=== PATIENT | female | born 1945 | race Caucasian/White ===

== ENCOUNTER 2016-05-03 18:27 | Inpatient (IN) | payer MEDICARE, OTHER ==
[~2016-05-03] VITALS: Ht 152.4 cm; Wt 73.3 kg
[2016-05-03] MEDS ORDERED: NALOXONE INJ 2 MG/2 ML SYRINGE (J2310) As Ordered ONE (20:08)
[2016-05-03 20:25] LABS: BASO % 0.4 % (0.0-1.0); EOS # 0.3 K/mm3 (0.0-0.50); EOS % 2.8 % (0.0-3.0); LARGE UNSTAINED CELL # 0.2 K/mm3 (0.0-0.4); LARGE UNSTAINED CELL % 1.4 % (0.0-4.0); LYMPH # 0.9 K/mm3 (1.5-4.5); LYMPH % 7.6 % (24.0-44.0); MEAN CORPUSCULAR HEMOGLOBIN 30.1 pg (27.0-33.0); MEAN CORPUSCULAR HGB CONC 32.4 g/dl (32.0-36.5); MONO # 0.5 K/mm3 (0.0-0.8); MONO % 3.9 % (0.0-5.0); NEUTROPHILS # 9.9 K/mm3 (1.8-7.7); NEUTROPHILS % 83.9 % (36.0-66.0); PLATELET COUNT, AUTOMATED 192 k/mm3 (150-450); WHITE BLOOD COUNT 11.8 K/mm3 (4.0-10.0)
[2016-05-03 20:26] LABS: ABG BASE EXCESS 3.3 (-2.0-2.0); ABG DEVICE NASAL CANN; ABG HCO3 28.5 MEQ/L (22.0-26.0); ABG PARTIAL PRESSURE CO2 45.7 mmHg (35.0-45.0); ABG PARTIAL PRESSURE O2 52.7 mmHg (75.0-100.0); ABG STANDARD HCO3 27.2 MEQ/L (22.0-26.0); ABG TOTAL CO2 29.9 MEQ/L (23.0-31.0); ABG pH (ARTERIAL) 7.413 UNITS (7.350-7.450)
[2016-05-03 20:50] LABS: ALBUMIN 3.4 GM/DL (3.2-5.2); ALBUMIN/GLOBULIN RATIO 0.92 (1.00-1.93); ALKALINE PHOSPHATASE 95 U/L (45-117); ALT/SGPT 25 U/L (12-78); ANION GAP 9 MEQ/L (8-16); AST/SGOT 30 U/L (15-37); BILIRUBIN,DIRECT 0.1 MG/DL (0.0-0.2); BILIRUBIN,TOTAL 0.3 MG/DL (0.2-1.0); BLOOD UREA NITROGEN 18 MG/DL (7-18); CALCIUM LEVEL 8.5 MG/DL (8.8-10.2); CARBON DIOXIDE LEVEL 30 MEQ/L (21-32); CHLORIDE LEVEL 105 MEQ/L (98-107); CREATININE FOR GFR 0.96 MG/DL (0.55-1.02); GLOMERULAR FILTRATION RATE > 60.0 (>39); GLUCOSE, FASTING 95 MG/DL (83-110); POTASSIUM SERUM 4.4 MEQ/L (3.5-5.1); SODIUM LEVEL 144 MEQ/L (136-145); T UPTAKE 36 % (30-39); THYROXINE (T4) 7.4 UG/DL (4.5-12.0); TOTAL PROTEIN 7.1 GM/DL (6.4-8.2)
[2016-05-03] MEDS ORDERED: dexameTHASONE 20 MG/5 ML VIAL (J1100) As Ordered ONE (20:59)
[2016-05-03] MEDS ORDERED: diphenhydrAMINE INJ 50MG/ML VIAL (J1200) As Ordered ONE ×2 (20:59→21:00)
[2016-05-03] MEDS ORDERED: ISOVUE-370 76% 100ML VIAL (Q9967) As Ordered ONE (21:51)
--- NOTE | 2016-05-03 22:30 | REPUSA ---
CT of the head Clinical history: syncope. Protocol: Multiple axial CT images obtained with 5 mm slice thickness were obtained through the head without administration of contrast. Findings: The ventricles and sulci are symmetric but prominent in size bilaterally. There are periven tricular areas of low attenuation throughout the deep white matter. There is no evidence of acute hem orrhage or infarct. There is no midline shift, mass effect, or extra-axial fluid collection. The osse ous structures are unremarkable. The visualized paranasal sinuses and mastoid air cells are clear. Impression: No acute hemorrhage or infarct. 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
--- NOTE | 2016-05-03 22:40 | REPUSA ---
CT angiogram of the chest Clinical statement: hypoxia. Technique: Multiple axial CT images were obtained from the thoracic inlet through the upper abdomen a fter a bolus administration of nonionic intravenous contrast. Coronal and sagittal reconstructions we re also obtained. No comparison is available. Findings: The pulmonary arteries are well-opacified with contrast, with no intraluminal filling defec ts to suggest embolism. The thoracic aorta demonstrates moderate atherosclerotic calcifications but i s otherwise unremarkable. Thyroid gland is within normal limits. There is no thoracic lymphadenopathy . There are no pericardial or pleural effusions. The lungs are clear. There is a moderate sized hiata l hernia. Achalasia of the esophagus is noted. Limited imaging of the upper abdomen is unremarkable. There are no suspicious osseous lesions. Impression: 1. No evidence of pulmonary embolism. 2. No acute intrapulmonary disease. 3. Moderate sized hiatal hernia with achalasia appreciated. 4. Moderate atherosclerosis of the thoracic aorta. No evidence of aneurysm or dissection.
[2016-05-03] MEDS ORDERED: CIPROFLOXACIN/D5W 400 MG/200 ML BAG (J0744) As Ordered ONE (23:44)
[2016-05-04] MEDS ORDERED: cefTRIAXone SOD 1 GM in D5W MINI-BAG PLUS 50 ML IV SCH ×2
[2016-05-04] MEDS ORDERED: ONDANSETRON 4MG/2ML VIAL (J2405) IV PRN
[2016-05-04] MEDS ORDERED: ACETAMINOPHEN TAB 650MG DOSE (2X325MG) PO PRN
[2016-05-04] MEDS ORDERED: HYDR-3713 PO (00:24)
[2016-05-04] MEDS ORDERED: GABA300C3 PO (00:24)
[2016-05-04] MEDS ORDERED: SERT-138 PO (00:24)
[2016-05-04] MEDS ORDERED: ENAB7.5T PO (00:24)
[2016-05-04] MEDS ORDERED: MODA200T15 PO (00:24)
[2016-05-04] MEDS ORDERED: K-TA1TAB PO (00:24)
[2016-05-04] MEDS ORDERED: PANT40TA2 PO (00:24)
[2016-05-04] MEDS ORDERED: CALC600T10 PO (00:24)
[2016-05-04] MEDS ORDERED: BACL10TA2 PO (00:24)
[2016-05-04] MEDS ORDERED: VITMTA PO (00:24)
[2016-05-04] MEDS ORDERED: FOSA70TA PO (00:24)
[2016-05-04] MEDS ORDERED: LEVO112T25 PO (00:24)
[2016-05-04] MEDS ORDERED: FERR325T PO (00:32)
[2016-05-04] MEDS ORDERED: PLAV75TA38 PO (00:32)
[2016-05-04] MEDS ORDERED: FURO20TA2 PO (00:32)
[2016-05-04] MEDS ORDERED: CETI10TA PO (00:32)
[2016-05-04] MEDS ORDERED: VITA400C2 PO (00:32)
[2016-05-04] MEDS ORDERED: ALLO100T PO (00:32)
[2016-05-04] MEDS ORDERED: ASPI81TA7 PO (00:32)
[2016-05-04] MEDS ORDERED: ATOR1TAB21 PO (00:35)
[2016-05-04] MEDS ORDERED: METO-207 PO (00:35)
[2016-05-04] MEDS ORDERED: ALBU83IN INH (00:36)
[2016-05-04] MEDS ORDERED: NITR4TASL SL (00:37)
[2016-05-04] MEDS ORDERED: NS 1,000 ML IV SCH (01:00)
--- NOTE | 2016-05-04 01:13 | EDDOCDS ---
Physician Documentation [facility] Name: Anny Gates Age: 71 yrs Sex: Female : 1945 Arrival Date: 05/03/2016 Time: 18:27 Bed TR1 Private MD: Radha Wiley A Disposition: 05/03/16 23:53 Hospitalization ordered by Kelly Rawls for Inpatient Admission. Preliminary diagnosis are Somnolence, Urinary tract infection, site not specified, Hypoxemia. - Bed requested for 5 [place]. - Status is Inpatient Admission. sls1 - Condition is Stable. - Problem is an ongoing problem. - Symptoms have improved. Historical: - Allergies: SULFA (SULFONAMIDES) (Rash); IODINEIODINE CONTAINING (Hives); PENICILLINS (Hives); - Home Meds: 1. albuterol sulfate 2.5 mg /3 mL (0.083 %) Nebulizer nebu 4 times per day (Last dose: 05/03/2016) 2. allopurinol 100 mg Oral tab 1 tab once daily 3. aspirin 81 mg Oral tab 1 tab once daily 4. atorvastatin 20 mg oral tab 1 tab once daily 5. Calcium + Vitamin D 600 mg calcium- 200 unit Oral tab twice a day 6. Centrum Silver oral tab daily 7. Plavix 75 mg Oral tab every other day (Last dose: 05/03/2016) 8. Enablex 7.5 mg oral Tb24 1 tab once daily 9. ferrous sulfate 325 mg (65 mg iron) Oral TbEC daily 10. Fosamax 35 mg Oral tab 1 tab Fridays 11. gabapentin 300 mg Oral tab three times a day 12. hydrocodone-acetaminophen 5-325 mg Oral tab q6h prn 13. potassium chloride 10 mEq Oral cpER 1 cap once daily 14. Levoxyl 112 mcg Oral tab 1 tab once daily 15. modafinil 200 mg oral tab 1 tab once daily 16. Nitrostat 0.4 mg SL subl 1 tab every 5 minutes 17. pantoprazole 40 mg oral TbEC 1 tab once daily 18. Sertraline 25 mg daily 19. vitamin E 400 unit Oral cap daily 20. Zyrtec 10 mg Oral tab 1 tab once daily 21. metoprolol tartrate 50 mg Oral tab 1 tab once daily 22. baclofen 10 mg Oral tab 1 tab twice a day - PMHx: Multiple Sclerosis; Sleep Apnea w/ CPAP; Hypothyroidism; Osteoporosis; ACS; VA; Cancer, Breast - Right; Hypertension; - PSHx: Stents, Coronary; infusaport insertion; Mastectomy- Right; lumbar spine x 2; - Social history: No barriers to communication noted, The patient speaks fluent Romansh, Smoking status: Patient states former smoker of tobacco. - Family history: Not pertinent. - : The pt / caregiver states he / she is on anticoagulants: Plavix. Home medication list is obtained from the caregiver. - Exposure Risk Screening:: None identified. Vital Signs: 05/03 18:30 BP 165 / 69; Pulse 76; Resp 18; Temp 99.8(O); Pulse Ox 93% on R/A; Weight 79.38 kg / dem1 175 lbs (R); Height 5 ft. 0 in. (152.40 cm) (R); Pain 0/10; 19:18 BP 195 / 78 (auto/); jmb 19:18 Pulse 72 MON; Pulse Ox 83% ; jmb 19:43 BP 179 / 76 (auto/); jmb 19:43 Pulse 72 MON; Pulse Ox 89% ; jmb 20:13 BP 195 / 79 (auto/); jmb 20:13 Pulse 74 MON; Pulse Ox 86% ; jmb 20:43 BP 184 / 81 (auto/); jmb 20:46 Pulse 76 MON; Pulse Ox 85% ; jmb 21:13 BP 186 / 86 (auto/); jmb 21:13 Pulse 90 MON; Pulse Ox 90% ; jmb 22:13 BP 189 / 79 (auto/); jmb 22:13 Pulse 78 MON; Pulse Ox 80% ; jmb 22:43 BP 159 / 69 (auto/); jmb 22:43 Pulse 76 MON; Pulse Ox 97% on 3 lpm NC; jmb 23:43 BP 156 / 68 (auto/); jmb 23:43 Pulse 76 MON; Resp 20; Temp 98.0; Pulse Ox 96% ; jmb 05/04 01:04 BP 148 / 67; Pulse 78; Resp 20; Temp 98.4(O); Pulse Ox 97% on 3 lpm NC; Pain 0/10; jmb 05/03 18:30 Body Mass Index 34.18 (79.38 kg, 152.40 cm) dem1 MDM: 05/03 19:07 ECG WITH READING ER PHYS+CARDIAG ordered. EDMS 19:42 Call Respiratory ordered. cs11 19:42 -Blood Culture (Adults Only), peripheral from different site, or from device/port/PICC cs11 etc. if present ordered. 19:42 naloxone 2 mg IVP once ordered. cs11 19:43 -Arterial Blood Gas Ordered. EDMS 19:43 CBC with Diff Ordered. EDMS 19:43 Lactic Acid (Purvis tube on ice) Ordered. EDMS 19:44 MED Profile Ordered. EDMS 19:44 Liver Profile Ordered. EDMS 19:44 Ammonia ([place] Tube on Ice, Not [place]a [place]) Ordered. EDMS 19:44 Acetaminophen Level Ordered. EDMS 19:44 Thyroid Profile Ordered. EDMS 19:44 Urinalysis Ordered. EDMS 19:44 -Blood Culture Ordered. EDMS 19:44 Urine Culture Ordered. EDMS 19:46 Cardiac Marker Panel Ordered. EDMS 19:46 -Blood Culture (Adults Only), peripheral from different site, or from device/port/PICC tmm1 etc. if present complete. 19:46 Call Respiratory complete. tmm1 19:48 BLOOD CULTURES Ordered. EDMS 19:50 Financial registration complete. kf3 19:54 [facility] [place] was scanned into [employer] and attached to record. kf3 20:30 -Arterial Blood Gas Reviewed. cs11 20:30 CBC with Diff Reviewed. cs11 20:53 MED Profile Reviewed. cs11 20:53 Liver Profile Reviewed. cs11 20:53 Acetaminophen Level Reviewed. cs11 20:53 Lactic Acid (Purvis tube on ice) Reviewed. cs11 20:53 Ammonia ([place] Tube on Ice, Not [place]) Reviewed. cs11 20:53 Thyroid Profile Reviewed. cs11 20:53 Cardiac Marker Panel Reviewed. cs11 20:56 Dexamethasone 10 mg IV at bolus once ordered. cs11 20:56 diphenhydrAMINE 12.5 mg IVP once ordered. cs11 20:56 CT Head Without Contrast Ordered. EDMS 20:56 CT Chest Angio R/O PE Ordered. EDMS 20:59 NS 0.9% 500 ml IV at bolus once ordered. cs11 23:40 Urinalysis Reviewed. cs11 23:40 CT Head Without Contrast Reviewed. cs11 23:40 CT Chest Angio R/O PE Reviewed. cs11 23:41 Ciprofloxacin 400 mg IVPB at 200 mL/hr once over 60 mins ordered. cs11 23:44 BED REQUEST+ADM ordered. EDMS 23:55 Admission / Observation Status ordered. EDMS 23:55 BASIC METABOLIC PROFILE Ordered. EDMS 23:55 CBC WITH DIFFERENTIAL Ordered. EDMS 23:56 PHYSICAL THERAPY EVAL & TREAT ordered. EDMS 05/04 00:12 MRI Brain W/O FOLL BY WITH Ordered. EDMS Administered Medications: 05/03 20:13 Drug: naloxone 2 mg [naloxone 1 mg/mL injection syringe (2 mL)] Route: IVP; Site: [facility] Implantable Access Device; 22:39 Follow up: Response: No Adverse Reaction [facility] 21:04 Drug: Dexamethasone 10 mg [dexamethasone 4 mg/mL injection solution] Route: IV; Rate: jmb bolus; Site: Implantable Access Device; 22:38 Follow up: IV Status: Completed infusion [facility] 21:04 Drug: diphenhydrAMINE 12.5 mg [diphenhydramine 50 mg/mL injection solution (0.25 mL)] [facility] Route: IVP; Site: Implantable Access Device; 21:10 Drug: NS 0.9% 500 ml [sodium chloride 0.9 % intravenous solution] Route: IV; Rate: jmb bolus; Site: Implantable Access Device; 23:46 Drug: Ciprofloxacin 400 mg [ciprofloxacin 400 mg/200 mL in 5 % dextrose intravenous jmb piggyback] Route: IVPB; Rate: 200 mL/hr; Infused Over: 60 mins; Site: Implantable Access Device; 05/04 00:54 Follow up: IV Status: Completed infusion; IV Intake: 500ml tm5 Signatures: Dispatcher [employer] EDNY Bimal Kwan, Reg Reg kf3 Columba Perez RN RN Latanya Vazquez, RN RN sls1 Alejandro Gonzales, DO cs11 McLear, Ashtyn, VASCULAR SURGERY PHYSICIAN VASCULAR SURGERY PHYSICIAN tmm1 Fabrizio Davenport RN RN jmb Andrews, Steven, Ruthy Liang RN, sa, RN tm5 The chart was reviewed and I authenticate all verbal orders and agree with the evaluation and treatment provided.Corrections: (The following items were deleted from the chart) 05/03 21:04 20:34 Misc. Nursing Order ordered. 11 [facility] 05/04 00:41 05/03 19:05 Home Meds: metoprolol succinate 50 mg Tb24 1 tab once daily; jjr jmb Attachments: 19:54 [facility] [place] [email or web address]
--- NOTE | 2016-05-04 01:13 | EDDOCDS ---
Nurse's Notes [facility] Name: Anny Gates Age: 71 yrs Sex: Female : 1945 Arrival Date: 05/03/2016 Time: 18:27 Bed TR1 Private MD: Radha Wiley A Diagnosis: Somnolence;Urinary tract infection, site not specified;Hypoxemia Presentation: 05/03 18:48 Presenting complaint: chart from [facility] dated today states pt was seen jjr on 04/30/16 for altered mental status and dehydration, discharged the next day, pt continues with lethargy and slurred speech with pox readings in the upper 80's, pt denies SOB. The last date and time the patient was known to be well was was at an unknown time on an unknown date. No acute neurological deficit is noted. The patients blood glucose was checked before arriving to the hospital and was found to be normal. Adult Sepsis Screening: Patient has new or worsening altered mentation (1 point). Patient's respiratory rate is less than 22. Systolic blood pressure is greater than 100. Patient has a qSOFA score of 1- Negative Sepsis Screen. Suicide/Homicide risk assessment- the patient denies having any suicidal and/or homicidal ideations and does not present with any other emotional, behavioral or mental health complaints. 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 Transition of care: patient was received from [facility]. 18:48 Acuity: FLACA Level 3 jjr 18:48 Method Of Arrival: Wheelchair jjr Triage Assessment: 19:06 The onset of the patients symptoms was more than three hours ago. General: Appears in jjr no apparent distress. Pain: Denies pain. Neurological: Level of Consciousness is awake, obeys commands, Reports weakness. Historical: - Allergies: SULFA (SULFONAMIDES) (Rash); IODINEIODINE CONTAINING (Hives); PENICILLINS (Hives); - Home Meds: 1. albuterol sulfate 2.5 mg /3 mL (0.083 %) Nebulizer nebu 4 times per day (Last dose: 05/03/2016) 2. allopurinol 100 mg Oral tab 1 tab once daily 3. aspirin 81 mg Oral tab 1 tab once daily 4. atorvastatin 20 mg oral tab 1 tab once daily 5. Calcium + Vitamin D 600 mg calcium- 200 unit Oral tab twice a day 6. Centrum Silver oral tab daily 7. Plavix 75 mg Oral tab every other day (Last dose: 05/03/2016) 8. Enablex 7.5 mg oral Tb24 1 tab once daily 9. ferrous sulfate 325 mg (65 mg iron) Oral TbEC daily 10. Fosamax 35 mg Oral tab 1 tab Fridays 11. gabapentin 300 mg Oral tab three times a day 12. hydrocodone-acetaminophen 5-325 mg Oral tab q6h prn 13. potassium chloride 10 mEq Oral cpER 1 cap once daily 14. Levoxyl 112 mcg Oral tab 1 tab once daily 15. modafinil 200 mg oral tab 1 tab once daily 16. Nitrostat 0.4 mg SL subl 1 tab every 5 minutes 17. pantoprazole 40 mg oral TbEC 1 tab once daily 18. Sertraline 25 mg daily 19. vitamin E 400 unit Oral cap daily 20. Zyrtec 10 mg Oral tab 1 tab once daily 21. metoprolol tartrate 50 mg Oral tab 1 tab once daily 22. baclofen 10 mg Oral tab 1 tab twice a day - PMHx: Multiple Sclerosis; Sleep Apnea w/ CPAP; Hypothyroidism; Osteoporosis; ACS; CA; Cancer, Breast - Right; Hypertension; - PSHx: Stents, Coronary; infusaport insertion; Mastectomy- Right; lumbar spine x 2; - Social history: No barriers to communication noted, The patient speaks fluent Thai, Smoking status: Patient states former smoker of tobacco. - Family history: Not pertinent. - : The pt / caregiver states he / she is on anticoagulants: Plavix. Home medication list is obtained from the caregiver. - Exposure Risk Screening:: None identified. Screenin:48 Fall Risk. jjr 19:13 Screening information is obtained from the patient, the caregiver. Fall risk: At risk jmb due to immobility. Assistance ADL's: Requires assistance with meal preparation, this assistance is provided by residence staff, bathing, assistance is provided by residence staff, dressing, assistance is provided by residence staff, toileting, assistance is provided by residence staff, ambulation, assistance is provided by residence staff, housework, assistance is provided by residence staff. Abuse/DV Screen: The patient / caregiver reports he/she is: not in a situation that causes fear, pain or injury. Nutritional screening: No deficits noted. home support is adequate. 05/04 01:04 Advance Directives: Currently, there is no health care proxy. There is no active DNR jmb order. There is no living will. There is no Power of Inspector Type. Assessment: 05/03 19:13 General: Appears in no apparent distress, Behavior is appropriate for age, cooperative. jmb Pain: Denies pain. Neurological: Level of Consciousness is awake, alert, confused, Oriented to person, place, Facial symmetry appears normal, Facial symmetry: tongue is midline. Cardiovascular: Capillary refill < 3 seconds Heart tones S1 S2 present Edema is 2+ to left midcalf, left ankle, left foot, left toes, right midcalf, right ankle, right foot and right toes Pulses are all present. Rhythm is sinus rhythm No ectopy. Chest pain is denied. Respiratory: Airway is patent Respiratory effort is even, Respiratory pattern is regular, Breath sounds are diminished bilaterally. GI: Abdomen is obese, Bowel sounds present X 4 quads. hypoactive in right upper quadrant, left upper quadrant, right lower quadrant and left lower quadrant Abd is soft and non tender X 4 quads. Derm: Skin is pink, warm & dry. Musculoskeletal: Range of motion limited in all extremities. 20:14 General: Appears in no apparent distress, comfortable, Behavior is appropriate for age, jmb cooperative, Patient laying on stretcher, appears comfortable. NO voiced complaints at this time. Caregivers at bedside. . Neurological: Level of Consciousness is awake, alert, confused, Oriented to person, place. Respiratory: Airway is patent Respiratory effort is even, Respiratory pattern is regular. 20:43 General: Attempt to catheterize x 1 with assist from Ruthy Roman RN with no success. . jmb 20:55 General: Appears in no apparent distress, comfortable, Behavior is appropriate for age, jmb cooperative, Patient laying on stretcher, appears comfortable. NO voiced complaints at this time. . Neurological: Level of Consciousness is awake, alert, confused, Oriented to person, place. Respiratory: Airway is patent Respiratory effort is even, unlabored, Respiratory pattern is regular, symmetrical. 21:39 General: Appears in no apparent distress, comfortable, Behavior is appropriate for age, jmb cooperative, Patient laying on stretcher, appears comfortable. NO voiced complaints at this time. . Neurological: Level of Consciousness is awake, alert, confused, Oriented to person, place. Respiratory: Airway is patent Respiratory effort is even, unlabored, Respiratory pattern is regular, symmetrical. 22:14 General: Appears in no apparent distress, comfortable, Behavior is appropriate for age, jmb cooperative, Patient returned from CT. Patient appears comfortable. Patient denies discomfort at this time. . Pain: Denies pain. Neurological: Level of Consciousness is awake, alert, confused, Oriented to person, place. Neurological: Facial symmetry appears normal, Facial symmetry: tongue is midline. Cardiovascular: Capillary refill < 3 seconds Heart tones S1 S2 present. Respiratory: Airway is patent Respiratory effort is even, unlabored, Respiratory pattern is regular, symmetrical, Breath sounds are diminished bilaterally. GI: Abdomen is obese, Bowel sounds present X 4 quads. Abd is soft and non tender X 4 quads. Derm: Skin is pink, warm & dry. Musculoskeletal: Range of motion limited in all extremities. 22:49 General: Appears in no apparent distress, comfortable, Behavior is appropriate for age, jmb cooperative. Neurological: Level of Consciousness is awake, alert, confused, Oriented to person, place. Respiratory: Airway is patent Respiratory effort is even, unlabored, Respiratory pattern is regular, symmetrical. 23:25 General: Appears in no apparent distress, comfortable, Behavior is appropriate for age, jmb cooperative. Neurological: Level of Consciousness is awake, alert, confused, Oriented to person, place. Respiratory: Airway is patent Respiratory effort is even, unlabored, Respiratory pattern is regular, symmetrical. 02/25 00:42 General: Appears in no apparent distress, comfortable, Behavior is appropriate for age, jmb cooperative, Dr. Remy in with patient and caretakers. NO voiced complaints at this time. . Neurological: Level of Consciousness is awake, alert, confused, Oriented to person, place, Facial symmetry appears normal, Facial symmetry: tongue is midline. Respiratory: Airway is patent Respiratory effort is even, unlabored, Respiratory pattern is regular, symmetrical. 01:04 General: Appears in no apparent distress, comfortable, Behavior is appropriate for age, jmb cooperative, Patient laying on stretcher, no voiced complaints at this time. . General: Patient ready for transport to [facility] after MRI. Neurological: Level of Consciousness is awake, alert, confused, Oriented to person, place. Respiratory: Airway is patent Respiratory effort is even, unlabored, Respiratory pattern is regular, symmetrical. Vital Signs: 05/03 18:30 BP 165 / 69; Pulse 76; Resp 18; Temp 99.8(O); Pulse Ox 93% on R/A; Weight 79.38 kg (R); dem1 Height 5 ft. 0 in. (152.40 cm) (R); Pain 0/10; 19:18 BP 195 / 78 (auto/); jmb 19:18 Pulse 72 MON; Pulse Ox 83% ; jmb 19:43 BP 179 / 76 (auto/); jmb 19:43 Pulse 72 MON; Pulse Ox 89% ; jmb 20:13 BP 195 / 79 (auto/); jmb 20:13 Pulse 74 MON; Pulse Ox 86% ; jmb 20:43 BP 184 / 81 (auto/); jmb 20:46 Pulse 76 MON; Pulse Ox 85% ; jmb 21:13 BP 186 / 86 (auto/); jmb 21:13 Pulse 90 MON; Pulse Ox 90% ; jmb 22:13 BP 189 / 79 (auto/); jmb 22:13 Pulse 78 MON; Pulse Ox 80% ; jmb 22:43 BP 159 / 69 (auto/); jmb 22:43 Pulse 76 MON; Pulse Ox 97% on 3 lpm NC; jmb 23:43 BP 156 / 68 (auto/); jmb 23:43 Pulse 76 MON; Resp 20; Temp 98.0; Pulse Ox 96% ; b 05/04 01:04 BP 148 / 67; Pulse 78; Resp 20; Temp 98.4(O); Pulse Ox 97% on 3 lpm NC; Pain 0/10; b 05/03 18:30 Body Mass Index 34.18 (79.38 kg, 152.40 cm) [facility] Vitals: 05/03 18:30 Log In Time: May 03, 2016 at 18:26. RN notified that patient meets [place] [facility] criteria. 05/04 01:06 Glucose Measurement D-stick deferred by provider. [facility] ED Course: 05/03 18:29 Patient visited by Rodney Dumont. dem1 18:29 Radha Wiley is Private Physician. dem1 18:29 Patient moved to Waiting dem1 18:48 Dagoberto Levi, RN is Primary Nurse. jjr 18:48 Patient moved to 10 jjr 18:51 Triage Initiated jjr 18:58 Alejandro Gonzales DO is Attending Physician. cs11 18:58 Patient visited by Alejandro Gonzales DO. cs11 19:13 The patient / caregiver is instructed regarding the plan of care and ED course. Cardiac jmb monitor on. 19:16 Patient visited by Fabrizio Davenport RN. jmb 19:21 EKG done. (by ED staff). Reviewed by Alejandro Gonzales DO. jmv 19:22 Patient visited by Alexi Dillard PCA. jmv 19:22 Pt greeted and oriented to ED. Patient advised of names of staff involved in care, jmv location of call garber, wait times and NPO status. Patient has correct armband on for positive identification. Placed in gown. Bed in low position. Call light in reach. Side rails up X2. 19:52 Patient name changed from Anny\S\\S\Gates\S\ to Anny\S\Lebel\S\Gates. EDMS 19:54 [facility] Payment Agreement was scanned into [employer] and attached to record. kf3 20:14 Patient visited by Fabrizio Davenport RN. jmb 20:14 Lactic Acid (Purvis tube on ice) Sent. jmb 20:24 -Arterial Blood Gas Sent. jh6 20:28 Accessed using accessed w/ # 20 Gund[place] needle, sterile technique, per hospital protocol. jmb Port-a-Cath in patient's anterior aspect of right upper chest. Clean & dry. Dressing intact. Good blood return. Flushes easily. 20:29 Patient visited by Fabrizio Davenport RN. jmb 20:56 Patient visited by Fabrizio Davenport RN. jmb 21:40 Patient visited by Fabrizio Davenport RN. jmb 22:16 Patient visited by Fabrizio Davenport RN. jmb 22:43 CT Head Without Contrast Returned. EDMS 22:43 CT Chest Angio R/O PE Returned. EDMS 22:50 Patient visited by Fabrizio Davenport RN. jmb 23:02 Primary Nurse role handed off by Dagoberto Levi, ALEX jb5 23:25 Patient visited by Fabrizio Davenport RN. jmb 23:36 BLOOD CULTURES Sent. jmb 23:52 Kelly Remy is Hospitalizing Provider. cs11 05/04 00:42 Patient visited by Fabrizio Davenport RN. jmb 01:04 No procedures done that require assistance. jmb 01:05 Patient moved to [place] [id number] Administered Medications: 05/03 20:13 Drug: naloxone 2 mg [naloxone 1 mg/mL injection syringe (2 mL)] Route: IVP; Site: [facility] Implantable Access Device; 22:39 Follow up: Response: No Adverse Reaction jmb 21:04 Drug: Dexamethasone 10 mg [dexamethasone 4 mg/mL injection solution] Route: IV; Rate: jmb bolus; Site: Implantable Access Device; 22:38 Follow up: IV Status: Completed infusion jmb 21:04 Drug: diphenhydrAMINE 12.5 mg [diphenhydramine 50 mg/mL injection solution (0.25 mL)] jmb Route: IVP; Site: Implantable Access Device; 21:10 Drug: NS 0.9% 500 ml [sodium chloride 0.9 % intravenous solution] Route: IV; Rate: jmb bolus; Site: Implantable Access Device; 23:46 Drug: Ciprofloxacin 400 mg [ciprofloxacin 400 mg/200 mL in 5 % dextrose intravenous jmb piggyback] Route: IVPB; Rate: 200 mL/hr; Infused Over: 60 mins; Site: Implantable Access Device; 05/04 00:54 Follow up: IV Status: Completed infusion; IV Intake: 500ml tm5 Intake: 00:54 IV: 500.00ml; Total: 500.00ml. tm5 RT: 05/03 20:25 ABG's drawn from right brachial artery pressure held for 5 minutes no bleeding noted jh6 pressure bandage applied specimen sent pt. tolerated well. Order Results: Lab Order: -Arterial Blood Gas; SPEC'M 05/03/16 20:06 Test: ABG pH (ARTERIAL); Value: 7.413; Range: 7.350-7.450; Units: UNITS; Status: F Test: ABG PARTIAL PRESSURE CO2; Value: 45.7; Range: 35.0-45.0; Abnormal: Above high normal; Units: mmHg; Status: F Test: ABG PARTIAL PRESSURE O2; Value: 52.7; Range: 75.0-100.0; Abnormal: Below low normal; Units: mmHg; Status: F Test: ABG TOTAL CO2; Value: 29.9; Range: 23.0-31.0; Units: MEQ/L; Status: F Test: ABG HCO3; Value: 28.5; Range: 22.0-26.0; Abnormal: Above high normal; Units: MEQ/L; Status: F Test: ABG BASE EXCESS; Value: 3.3; Range: -2.0-2.0; Abnormal: Above high normal; Status: F Test: ABG STANDARD HCO3; Value: 27.2; Range: 22.0-26.0; Abnormal: Above high normal; Units: MEQ/L; Status: F Test: ABG O2 SATURATION; Value: 89.0; Range: 95.0-99.0; Abnormal: Below low normal; Units: %; Status: F Test: ABG DEVICE; Value: NASAL FLORY; Status: F Lab Order: CBC with Diff; SPEC'M 05/03/16 20:05 Test: WHITE BLOOD COUNT; Value: 11.8; Range: 4.0-10.0; Abnormal: Above high normal; Units: K/mm3; Status: F Test: RED BLOOD COUNT; Value: 4.19; Range: 4.00-5.40; Units: M/mm3; Status: F Test: HEMOGLOBIN; Value: 12.6; Range: 12.0-16.0; Units: g/dl; Status: F Test: HEMATOCRIT; Value: 39.0; Range: 36.0-47.0; Units: %; Status: F Test: MEAN CORPUSCULAR VOLUME; Value: 93.0; Range: 80.0-96.0; Units: fl; Status: F Test: MEAN CORPUSCULAR HEMOGLOBIN; Value: 30.1; Range: 27.0-33.0; Units: pg; Status: F Test: MEAN CORPUSCULAR HGB CONC; Value: 32.4; Range: 32.0-36.5; Units: g/dl; Status: F Test: RED CELL DISTRIBUTION WIDTH; Value: 14.0; Range: 11.5-14.5; Units: %; Status: F Test: PLATELET COUNT, AUTOMATED; Value: 192; Range: 150-450; Units: k/mm3; Status: F Test: NEUTROPHILS %; Value: 83.9; Range: 36.0-66.0; Abnormal: Above high normal; Units: %; Status: F Test: LYMPH %; Value: 7.6; Range: 24.0-44.0; Abnormal: Below low normal; Units: %; Status: F Test: MONO %; Value: 3.9; Range: 0.0-5.0; Units: %; Status: F Test: EOS %; Value: 2.8; Range: 0.0-3.0; Units: %; Status: F Test: BASO %; Value: 0.4; Range: 0.0-1.0; Units: %; Status: F Test: LARGE UNSTAINED CELL %; Value: 1.4; Range: 0.0-4.0; Units: %; Status: F Test: NEUTROPHILS #; Value: 9.9; Range: 1.8-7.7; Abnormal: Above high normal; Units: K/mm3; Status: F Test: LYMPH #; Value: 0.9; Range: 1.5-4.5; Abnormal: Below low normal; Units: K/mm3; Status: F Test: MONO #; Value: 0.5; Range: 0.0-0.8; Units: K/mm3; Status: F Test: EOS #; Value: 0.3; Range: 0.0-0.50; Units: K/mm3; Status: F Test: BASO #; Value: 0.0; Range: 0.0-0.2; Units: K/mm3; Status: F Test: LARGE UNSTAINED CELL #; Value: 0.2; Range: 0.0-0.4; Units: K/mm3; Status: F Lab Order: Lactic Acid (Purvis tube on ice); SPEC'M 05/03/16 20:05 Test: LACTIC ACID SEPSIS PROTOCOL; Value: 0.5; Range: 0.4-2.0; Units: MMOL/L; Status: F Lab Order: MED Profile; SPEC05/03/16 20:05 Test: GLUCOSE, FASTING; Value: 95; Range: 83-110; Units: MG/DL; Status: F Test: BLOOD UREA NITROGEN; Value: 18; Range: 7-18; Units: MG/DL; Status: F Test: CREATININE FOR GFR; Value: 0.96; Range: 0.55-1.02; Units: MG/DL; Status: F Test: GLOMERULAR FILTRATION RATE; Value: > 60.0; Range: >39; Status: F Test: SODIUM LEVEL; Value: 144; Range: 136-145; Units: MEQ/L; Status: F Test: POTASSIUM SERUM; Value: 4.4; Range: 3.5-5.1; Units: MEQ/L; Status: F Test: CHLORIDE LEVEL; Value: 105; Range: 98-107; Units: MEQ/L; Status: F Test: CARBON DIOXIDE LEVEL; Value: 30; Range: 21-32; Units: MEQ/L; Status: F Test: ANION GAP; Value: 9; Range: 8-16; Units: MEQ/L; Status: F Test: CALCIUM LEVEL; Value: 8.5; Range: 8.8-10.2; Abnormal: Below low normal; Units: MG/DL; Status: F Test Note: ; Units are mL/min/1.73 m2 Chronic Kidney Disease Staging per NKF: Stage I & II GFR >=60 Normal to Mildly Decreased Stage III GFR 30-59 Moderately Decreased Stage IV GFR 15-29 Severely Decreased Stage V GFR <15 Very Little GFR Left ESRD GFR <15 on MICA INSPECTOR Lab Order: Liver Profile; [facility] 05/03/16 20:05 Test: BILIRUBIN,TOTAL; Value: 0.3; Range: 0.2-1.0; Units: MG/DL; Status: F Test: BILIRUBIN,DIRECT; Value: 0.1; Range: 0.0-0.2; Units: MG/DL; Status: F Test: TOTAL PROTEIN; Value: 7.1; Range: 6.4-8.2; Units: GM/DL; Status: F Test: ALBUMIN; Value: 3.4; Range: 3.2-5.2; Units: GM/DL; Status: F Test: ALBUMIN/GLOBULIN RATIO; Value: 0.92; Range: 1.00-1.93; Abnormal: Below low normal; Status: F Test: AST/SGOT; Value: 30; Range: 15-37; Units: U/L; Status: F Test: ALT/SGPT; Value: 25; Range: 12-78; Units: U/L; Status: F Test: ALKALINE PHOSPHATASE; Value: 95; Range: 45-117; Units: U/L; Status: F Lab Order: Ammonia ([place] Tube on Ice, Not [place]); [facility] 05/03/16 20:05 Test: AMMONIA; Value: 14; Range: <32; Units: uMOL/L; Status: F Lab Order: Acetaminophen Level; [facility] 05/03/16 20:05 Test: ACETAMINOPHEN LEVEL; Value: < 2.0; Range: 10.0-30.0; Abnormal: Below low normal; Units: UG/ML; Status: F Lab Order: Thyroid Profile; [facility] 05/03/16 20:05 Test: T UPTAKE; Value: 36; Range: 30-39; Units: %; Status: F Test: THYROXINE (T4); Value: 7.4; Range: 4.5-12.0; Units: UG/DL; Status: F Test: FREE THYROXINE INDEX; Value: 2.7; Range: 1.3-4.8; Units: %; Status: F Test: THYROID STIMULATING HORMONE; Value: 1.640; Range: 0.358-3.740; Units: uIU/ML; Status: F Lab Order: Urinalysis; [facility] 05/03/16 23:08 Test: APPEARANCE, URINE; Value: CLOUDY; Range: CLEAR; Abnormal: Above high normal; Status: F Test: COLOR, URINE; Value: YELLOW; Range: YELLOW; Status: F Test: PH,URINE; Value: 6.0; Range: 5.0-9.0; Units: UNITS; Status: F Test: SPECIFIC GRAVITY URINE AUTO; Value: 1.018; Range: 1.002-1.035; Status: F Test: PROTEIN, URINE AUTO; Value: 1+; Range: NEGATIVE; Abnormal: Above high normal; Units: mg/dL; Status: F Test: GLUCOSE, URINE (UA) AUTO; Value: NEGATIVE; Range: NEGATIVE; Units: mg/dL; Status: F Test: KETONE, URINE AUTO; Value: NEGATIVE; Range: NEGATIVE; Units: mg/dL; Status: F Test: UROBILINOGEN, URINE AUTO; Value: 0.2; Range: 0.0-2.0; Units: mg/dL; Status: F Test: BILIRUBIN, URINE AUTO; Value: NEGATIVE; Range: NEGATIVE; Status: F Test: NITRITE, URINE AUTO; Value: POSITIVE; Range: NEGATIVE; Status: F Test: LEUKOCYTE ESTERASE, URINE AUTO; Value: 3+; Range: NEGATIVE; Abnormal: Above high normal; Status: F Test: BLOOD, URINE BLOOD; Value: 2+; Range: NEGATIVE; Abnormal: Above high normal; Status: F Test: WBC, URINE AUTO; Value: TNTC; Range: 0-3; Abnormal: Above high normal; Units: /HPF; Status: F Test: RBC, URINE AUTO; Value: 74; Range: 0-3; Abnormal: Above high normal; Units: /HPF; Status: F Test: BACTERIA, URINE AUTO; Value: 2+; Range: NEGATIVE; Abnormal: Above high normal; Status: F Test: SQUAMOUS EPITHELIAL CELL UR AU; Value: 0; Range: 0-6; Units: /HPF; Status: F Test: HYALINE CAST, URINE AUTO; Value: 0; Range: 0-1; Units: /LPF; Status: F Lab Order: Cardiac Marker Panel; SPEC'M 05/03/16 20:05 Test: CPK CREATINE PHOSPHOKINASE; Value: 111; Range: 26-192; Units: U/L; Status: F Test: CK-MB VALUE MASS; Value: 1.2; Range: 0.0-3.6; Units: NG/ML; Status: F Test: MB/CK RELATIVE INDEX; Value: 1.08; Range: < OR =4; Status: F Test: TROPONIN I; Value: < 0.02; Range: < 0.10; Units: NG/ML; Status: F Test Note: ; DIAGNOSIS CRITERIA MMB ng/ml Relative Index (RI) NON-AMI < or = 5 N/A PURVIS ZONE > 5 < or = 4 AMI > 5 > 4 Radiology Order: CT Head Without Contrast Test: CT Head Without Contrast REASON FOR EXAMINATION: Syncope; ; CT of the head; Clinical history: syncope.; Protocol: Multiple axial CT images obtained with 5 mm slice thickness were obtained through the head; without administration of contrast.; Findings: The ventricles and sulci are symmetric but prominent in size bilaterally. There are periven; tricular areas of low attenuation throughout the deep white matter. There is no evidence of acute hem; orrhage or infarct. There is no midline shift, mass effect, or extra-axial fluid collection. The osse; ous structures are unremarkable. The visualized paranasal sinuses and mastoid air cells are clear.; Impression: No acute hemorrhage or infarct. Findings are consistent with age-related atrophy and chronic care nurse; oriana small vessel ischemic disease.; ; Radiology Order: CT Chest Angio R/O PE Test: CT Chest Angio R/O PE REASON FOR EXAMINATION: hypoxia; ; CT angiogram of the chest; Clinical statement: hypoxia.; Technique: Multiple axial CT images were obtained from the thoracic inlet through the upper abdomen a; fter a bolus administration of nonionic intravenous contrast. Coronal and sagittal reconstructions we; re also obtained.; No comparison is available.; Findings: The pulmonary arteries are well-opacified with contrast, with no intraluminal filling defec; ts to suggest embolism. The thoracic aorta demonstrates moderate atherosclerotic calcifications but i; s otherwise unremarkable. Thyroid gland is within normal limits. There is no thoracic lymphadenopathy; . There are no pericardial or pleural effusions. The lungs are clear. There is a moderate sized hiata; l hernia. Achalasia of the esophagus is noted. Limited imaging of the upper abdomen is unremarkable.; There are no suspicious osseous lesions.; Impression:; 1. No evidence of pulmonary embolism.; 2. No acute intrapulmonary disease.; 3. Moderate sized hiatal hernia with achalasia appreciated.; 4. Moderate atherosclerosis of the thoracic aorta. No evidence of aneurysm or dissection.; ; Outcome: 23:53 Decision to Hospitalize by Provider. cs11 05/04 01:04 Discharge Assessment: Patient awake, alert and oriented x 3. No cognitive and/or jmb functional deficits noted. Patient verbalized understanding of disposition instructions. Patient awake and alert. confused, Oriented to person, place, Patient verbalized understanding of disposition instructions. Patient has no functional deficits. patient administered narcotics - no. The following High Risk Discharge criteria are identified: None. Admitted to Med/Surg accompanied by tech, via stretcher, with oxygen, with chart. Condition: stable Condition: improved. CT Study completed. Property :Personal belongings accompany Pt. 01:13 Patient left the ED. sls1 Signatures: Dispatcher [employer] EDMS Flaquita Pate METAL RECLAMATION KETTLE TENDER METAL RECLAMATION KETTLE TENDER jb5 Bimal Kwan, Reg Reg kf3 Columba Perez, RN RN jjRamez Acosta jh6 Latanya Robert, ALEX RN sls1 Rodney Dumont1 Alejandro Gonzales, DO DO cs11 Fabrizio Davenport RN RN jmb Alexi Dillard, METAL RECLAMATION KETTLE TENDER METAL RECLAMATION KETTLE TENDER jmv Ruthy Roman,ALEX RN tm5 Corrections: (The following items were deleted from the chart) 00:41 05/03 19:05 Home Meds: metoprolol succinate 50 mg Tb24 1 tab once daily; [place] MTDD
[2016-05-04] MEDS ORDERED: NITROGLYCERIN 0.4 MG SUBL TABLET SL PRN (01:30)
[2016-05-04] MEDS ORDERED: ALBUTEROL SULFATE 2.5 MG/0.5 ML INH NEB SOLN INH PRN (01:30)
[2016-05-04 02:05] VITALS: BP 140/62
--- NOTE | 2016-05-04 03:00 | REPUSA ---
CLINICAL HISTORY: Altered mental status. TECHNIQUE: MRI of the brain was performed utilizing multiple sequences in axial, coronal and sagittal planes without IV contrast material. Post gadolinium images were obtained. COMMENTS: The sella and parasellar region are unremarkable in appearance. The corpus callosum and cerebellar to nsils are of normal configuration and position. There are no intra or extra- axial collections. There is no mass effect or midline shift. There is no evidence of hematoma formation. There is no hydrocep halus. The visualized arterial structures demonstrate normal-appearing flow voids. The seventh and eighth ne rve bundles are visualized and are unremarkable in appearance. Numerous confluent foci of T2/FLAIR hyperintensity are noted in the bilateral periventricular and sub cortical white matter compatible with severe chronic white matter ischemic changes. Generalized proportionate dilatation of ventricles and sulci is present compatible with age-appropria te parenchymal atrophy. No abnormal enhancement is seen. IMPRESSION: 1. No acute intracranial pathology. 2. Generalized age-appropriate parenchymal atrophy. 3. Severe chronic white matter microvascular ischemic changes. Thank you for your kind referral of this patient.
[2016-05-04] MEDS: LEVOTHYROXINE 0.112 MG TAB (112 MCG) PO SCH (05:23)
[2016-05-04 06:00] VITALS: BP 138/64
[2016-05-04 06:41] LABS: BASO % 0.1 % (0.0-1.0); EOS % 0.2 % (0.0-3.0); LARGE UNSTAINED CELL % 0.3 % (0.0-4.0); LYMPH # 0.4 K/mm3 (1.5-4.5); LYMPH % 2.9 % (24.0-44.0); MEAN CORPUSCULAR HEMOGLOBIN 29.5 pg (27.0-33.0); MEAN CORPUSCULAR HGB CONC 31.7 g/dl (32.0-36.5); MONO # 0.1 K/mm3 (0.0-0.8); MONO % 0.9 % (0.0-5.0); NEUTROPHILS # 12.7 K/mm3 (1.8-7.7); NEUTROPHILS % 95.6 % (36.0-66.0); PLATELET COUNT, AUTOMATED 168 k/mm3 (150-450); RED CELL DISTRIBUTION WIDTH 13.9 % (11.5-14.5); WHITE BLOOD COUNT 13.3 K/mm3 (4.0-10.0)
[2016-05-04 06:51] LABS: CALCIUM LEVEL 8.7 MG/DL (8.8-10.2); CREATININE FOR GFR 1.08 MG/DL (0.55-1.02); GLOMERULAR FILTRATION RATE 53.4 (>39); POTASSIUM SERUM 4.2 MEQ/L (3.5-5.1)
--- NOTE | 2016-05-04 07:25 | ECGEPIP ---
Stationary ECG Study [facility] - ED Test Date: 2016-05-03 Pat Name: ELEN CASTELLON Department: Room: [place] [address] Gender: F Thread Reeler: madan : 1945 Requested By: JULIA SHEEHAN Order Number: [id number] Reading MD: Mariano Redd Measurements Intervals [place] Rate: 71 P: 47 NM: 155 QRS: -22 QRSD: 98 T: 3 QT: 386 QTc: 420 Interpretive Statements SINUS RHYTHM NSTTW ABNORMALITIES INFERIOR MYOCARDIAL INFARCTION, PROBABLY OLD NO PRIORS Electronically Signed On 05-04-2016 7:25:21 EST by Mariano Redd
[2016-05-04] MEDS: PANTOPRAZOLE 40MG TAB (PROTONIX) PO SCH (09:55)
[2016-05-04] MEDS: POTASSIUM CHLORIDE 10 MEQ SR TABLET PO SCH (09:55)
[2016-05-04] MEDS: BACLOFEN 10 MG TAB PO SCH ×2 (09:55→20:17)
[2016-05-04] MEDS: CETIRIZINE (ZyrTEC) 10 MG TAB PO SCH (09:56)
[2016-05-04] MEDS: MULTIVITAMINS/MINERALS THERAP 1 TAB PO SCH (09:56)
[2016-05-04] MEDS: VITAMIN E 400 INTERNATIONAL UNITS CAP PO SCH (09:57)
[2016-05-04] MEDS: SERTRALINE HCL 50 MG TAB PO SCH (09:57)
[2016-05-04] MEDS: GABAPENTIN 300 MG CAP PO SCH ×3 (09:58→20:16)
[2016-05-04] MEDS: ASPIRIN 81 MG ENTERIC TAB PO SCH (09:58)
[2016-05-04] MEDS: MODAFINIL 200MG TABLET PO SCH (09:58)
[2016-05-04] MEDS: FERROUS SULFATE 325MG TAB PO SCH (09:58)
[2016-05-04] MEDS: ALLOPURINOL 100 MG TAB PO SCH (09:59)
--- NOTE | 2016-05-04 11:55 | HPE ---
DATE OF ADMISSION: 05/03/2016 PRIMARY CARE PHYSICIAN: Radha Wiley INPATIENT HOSPITALIST ATTENDING: Dr. Elvis Morales CHIEF COMPLAINT: Confusion. HISTORY OF THE PRESENT ILLNESS: A 71-year-old female with a history of primary progressive multiple sclerosis, wheelchair bound, without the ability to stand, cared for 30/09 by two caregivers at home with prior history of pneumonia in February 2016 at [facility] as well as deep vein thrombosis (DVT) in the left lower extremity, breast cancer with mastectomy, hypertension, coronary artery disease, myocardial infarction (HI) times three stents at [facility] with primary chronic progressive multiple sclerosis, has been in her usual state of health until a week ago when she was found to have worsening lethargy and increasing memory loss, particularly recent memory. The patient was brought to [facility] twice. The second time around, she was admitted for observation for 2 days on 04/30/2016 through 05/02/2016 where the workup was negative. The patient had been having some slurred speech and "foggy memory." She has been falling asleep while she is eating and has been much more forgetful. A week prior to hospital admission at [facility], the patient has had one day of watery diarrhea without infectious etiology. She has had no weight loss. Currently has generalized weakness and worsening mentation. At baseline, she is lifted and supported by two caregivers with a chair lift. The patient was recently diagnosed with obstructive sleep apnea with oxygen saturation leatha of 80s with 11 events per hour. Referral was made for outpatient continuous positive airway pressure (CPAP) through [facility]. She has been prescribed supplemental oxygen as needed, but has been requiring this continuously at home, especially at nighttime. The patient had seen her neurologist 02/19/2016 at which point her Baclofen was increased from 10 mg three times a day to with an as needed occasional dose when the legs are stiff. Her Zoloft was also increased to 150 mg nightly. After hospital discharge at [facility] on 05/02/16 where she was hydrated and evaluated for altered mental status, the patient continued to have confusion and disorientation and increased lethargy. Glucose level was normal. Ammonia level was normal. Her neurologist and primary care physician recommended evaluation at [facility] ([facility]) Emergency Room where she was found to have abnormal urinalysis, with low grade temperature 99.8, with 83% saturations on room air, arterial blood gas showed a pH of 7.4, CO2 level of 45, O2 of 52. Due to hypoxia , CT chest was performed which showed no pulmonary embolism, edema or consolidation. The hospitalist service was called for admission for urinary tract infection (UTI) and moderate sleep apnea causing severe hypoxia. PAST MEDICAL HISTORY: Primary chronic progressive multiple sclerosis. Obstructive sleep apnea, still being evaluated as an outpatient for CPAP. Hypothyroidism. Osteoporosis. Coronary artery disease. Non-ST elevation myocardial infarction (HI). Breast cancer on the right with mastectomy. Hypertension. Chronic back pain. Cardiac stents at [facility]. Gout. PAST SURGICAL HISTORY: Coronary stents. Ncemvd-x-Hxpn insertion. Mastectomy on the right. Lumbar spine surgery times two. SOCIAL HISTORY: DO NOT RESUSCITATE, DO NOT INTUBATE. Health care proxy is Floyd Hidalgo, home number [phone], mobile phone [phone]. ALLERGIES: IODINE to the tablets only; other preparations are okay. PENICILLIN causing hives. SULFA causing hives. HOME MEDICATIONS: - albuterol sulfate nebulizer four times daily - allopurinol 100 mg daily - aspirin 81 mg daily - atorvastatin 20 mg daily - calcium and vitamin D twice a day - Centrum Silver daily - Plavix 75 mg every other day - Enablex 7.5 mg daily - ferrous sulfate 325 mg daily - Fosamax 35 mg one tablet on Fridays - gabapentin 300 mg three times a day - hydrocodone-acetaminophen 5-325 mg every 6 hours as needed - potassium chloride 10mEq daily - Levoxyl 112 mcg daily - metoprolol 50 mg daily - modafinil 200 mg daily - nitroglycerin as needed every 5 minutes for chest pain - Protonix 40 mg daily - sertraline 25 mg daily - vitamin E 400 units daily - Zyrtec 10 mg daily - Baclofen 10 mg three times a day and as needed - Lasix 20 mg daily - supplemental oxygen 2 liters nightly FAMILY HISTORY: Noncontributory due to age. REVIEW OF SYSTEMS: Per history of the present illness; otherwise 12-point system is negative. PHYSICAL EXAMINATION: Blood pressure of 159/69, pulse 76, respiratory rate 18, temperature 99.8, 83% on room air, 97% on 3 liters nasal cannula. Generally, the patient is awake, alert, oriented to person and place. She was able to state her name. She knew [place], [place], but she thought it was November 2016. Tongue is midline. No facial asymmetry. Respiratory: Respirations regular. No slurring of speech, unlabored breathing, able to speak in full sentences. No jugular venous distention. No thyromegaly. Lungs are clear to auscultation. No wheezing, rales or rhonchi. Heart: S1, S2, sinus rhythm. Abdomen: Soft, nontender, nondistended. Positive bowel sounds. Mild excoriations along the inguinal area but dry without serous drainage. 2+ pitting edema bilaterally. Neurologically, awake, alert, oriented to person and place, disoriented to time. Speech is fluent but slow. No slurring of speech. Face is symmetric. Motor function is 4 out of 5 bilateral upper extremities, 3 out of 5 bilateral lower extremities. LABORATORY DATA: White count 11.8, hemoglobin 12.6, hematocrit 39, platelet count 192, 83% neutrophils. Sodium 144, potassium 4.4, chloride 105, bicarbonate 30, BUN 18, creatinine 0.96, glucose of 95. Arterial blood gas - pH of 7.413, CO2 45 , O2 52, bicarbonate 28, O2 saturation 89%. Urinalysis: Cloudy appearance, 6 pH specific gravity 1.018, protein 1+, 2+ blood, positive nitrite, 3+ leukocyte esterase, too numerous to count WBCs, 2+ bacteria. IMAGING STUDIES: CT of the head shows no acute hemorrhage or infarct, age related atrophy, chronic small vessel ischemic disease. CT chest: No pulmonary embolism. No acute intrapulmonary disease. Moderate size hiatal hernia with achalasia. Moderate atherosclerosis of thoracic aorta. No evidence of aneurysm or dissection. ASSESSMENT AND PLAN: This is a 71-year-old female with primary progressive multiple sclerosis, managed by neurologist at [facility], coronary artery disease, stent, non-ST elevation myocardial infarction, chronically wheelchair bound and bed bound, breast cancer, status post right mastectomy, hypothyroidism, hypertension, osteoporosis, recent diagnosis of sleep apnea, complained of more than a 1-week history of increased lethargy, admitted for observation at [facility] and discharged home. Re-presents to [facility] for further evaluation, was found to have a urinary tract infection with mentation slightly improved, being worked up for possible multiple sclerosis (MS) exacerbation. The patient will be placed under hospitalist service, Dr. Elvis Morales. IMPRESSION: 1. Altered mental status with lethargy, initially thought to be due to changes in medications. The patient's Baclofen has been decreased. The patient was reversed with Narcan for possible hydrocodone-induced lethargy by Dr. Gonzales, here at [facility] Emergency Room, with no significant improvement. CT of the head shows no acute abnormality. Will obtain an MRI of the brain to rule out acute MS exacerbation. She clinically is unchanged aside from some memory loss, according to the caregivers, in terms of her motor and sensory function, which makes MS slightly unlikely. At this time, we do have evidence of infection in the urine. She does wear diapers. According to the caregivers, has had foul-smelling, cloudy urine, almost a week ago at [facility]; however, urine culture was negative. Due to worsening lethargy and fatigue, we will treat the patient with Ciprofloxacin and await the urine culture results, obtain blood cultures result. CT chest shows no acute infiltrate or consolidation. The patient has a penicillin allergy and will continue with quinolones for now. 2. Primary progressive multiple sclerosis. At this time, will obtain an MRI of the brain. Continue to check her neurologically for any new symptoms. She does not appear to have any new neurological symptoms in motor or sensory function, according to her caregivers. At this time, I will obtain an MRI of the brain. Will consult neurology if needed, if MRI is supportive of possible exacerbation with plaque formation. Continue symptomatic care for her multiple sclerosis. Monitor her while she is on Baclofen. 3. Obstructive sleep apnea. No significant hypercarbia, although we are noting severe hypoxemia. CT chest was negative for pulmonary embolism (PE). She will be given continuous oxygen overnight and throughout the day when she naps and nocturnal oximetry continuously to alert for desaturations. The patient has been referred to [facility] for continuous positive airway pressure. Defer to her outpatient primary care physician to arrange the details. 4. History of coronary artery disease, non-ST elevation myocardial infarction and stent. Continue her on aspirin and Plavix, Lipitor, beta blockade with metoprolol 50 mg daily. 5. Hypertension. Controlled. Continue on metoprolol. 6. Hypothyroidism. Check TSH and continue Levoxyl. 7. Moderate size hiatal hernia and achalasia. Continue on Protonix. Monitor for aspiration risk. 8. Gout. Continue allopurinol. 9. Deep vein thrombosis (DVT) prophylaxis with compression stockings. MTDD
[2016-05-04] MEDS: CIPROFLOXACIN 200 MG in APPROPRIATE DILUENT 1 EA IV SCH ×2 (11:57→23:04)
[2016-05-04 14:00] VITALS: BP 127/59
[2016-05-04] MEDS ORDERED: DOCUSATE SODIUM 100 MG CAP PO PRN (16:15)
[2016-05-04] MEDS ORDERED: SENNA 8.6 MG TAB (SENOKOT) PO PRN (16:15)
[2016-05-04] MEDS: METOPROLOL SUCC (TopROL XL) 50MG **XL** TAB PO SCH (20:16)
[2016-05-04] MEDS: ATORVASTATIN 20 MG TAB PO SCH (20:17)
[2016-05-04 22:00] VITALS: BP 161/68
[2016-05-05] MEDS: LEVOTHYROXINE 0.112 MG TAB (112 MCG) PO SCH (05:15)
[2016-05-05 05:54] LABS: BASO % 0.2 % (0.0-1.0); EOS % 0.2 % (0.0-3.0); LARGE UNSTAINED CELL # 0.2 K/mm3 (0.0-0.4); LARGE UNSTAINED CELL % 1.2 % (0.0-4.0); LYMPH # 1.2 K/mm3 (1.5-4.5); LYMPH % 9.1 % (24.0-44.0); MEAN CORPUSCULAR HEMOGLOBIN 29.8 pg (27.0-33.0); MEAN CORPUSCULAR HGB CONC 31.7 g/dl (32.0-36.5); MEAN CORPUSCULAR VOLUME 94.2 fl (80.0-96.0); MONO # 0.6 K/mm3 (0.0-0.8); MONO % 4.5 % (0.0-5.0); NEUTROPHILS # 11.5 K/mm3 (1.8-7.7); NEUTROPHILS % 84.8 % (36.0-66.0); PLATELET COUNT, AUTOMATED 174 k/mm3 (150-450); RED CELL DISTRIBUTION WIDTH 13.9 % (11.5-14.5); WHITE BLOOD COUNT 13.5 K/mm3 (4.0-10.0)
[2016-05-05 05:56] LABS: ANION GAP 10 MEQ/L (8-16); BLOOD UREA NITROGEN 15 MG/DL (7-18); CALCIUM LEVEL 8.3 MG/DL (8.8-10.2); CARBON DIOXIDE LEVEL 27 MEQ/L (21-32); CHLORIDE LEVEL 108 MEQ/L (98-107); CREATININE FOR GFR 0.95 MG/DL (0.55-1.02); GLOMERULAR FILTRATION RATE > 60.0 (>39); GLUCOSE, FASTING 91 MG/DL (83-110); SODIUM LEVEL 145 MEQ/L (136-145)
[2016-05-05 06:00] VITALS: BP 162/76
[2016-05-05] MEDS: GABAPENTIN 300 MG CAP PO SCH ×3 (08:20→20:21)
[2016-05-05] MEDS: VITAMIN E 400 INTERNATIONAL UNITS CAP PO SCH (08:20)
[2016-05-05] MEDS: ALLOPURINOL 100 MG TAB PO SCH (08:20)
[2016-05-05] MEDS: PANTOPRAZOLE 40MG TAB (PROTONIX) PO SCH (08:20)
[2016-05-05] MEDS: POTASSIUM CHLORIDE 10 MEQ SR TABLET PO SCH (08:20)
[2016-05-05] MEDS: FERROUS SULFATE 325MG TAB PO SCH (08:21)
[2016-05-05] MEDS: SERTRALINE HCL 50 MG TAB PO SCH (08:21)
[2016-05-05] MEDS: MULTIVITAMINS/MINERALS THERAP 1 TAB PO SCH (08:22)
[2016-05-05] MEDS: MODAFINIL 200MG TABLET PO SCH (08:22)
[2016-05-05] MEDS: ASPIRIN 81 MG ENTERIC TAB PO SCH (08:22)
[2016-05-05] MEDS: CETIRIZINE (ZyrTEC) 10 MG TAB PO SCH (08:22)
[2016-05-05] MEDS: BACLOFEN 10 MG TAB PO SCH ×2 (08:23→20:21)
[2016-05-05] MEDS: CIPROFLOXACIN 200 MG in APPROPRIATE DILUENT 1 EA IV SCH ×2 (11:00→23:17)
--- NOTE | 2016-05-05 13:58 | IPNPDOC ---
Subjective Date Seen The patient was seen on 05/05/16. Subjective Chief Complaint/HPI The patient is a 71-year-old female admitted with a reason for visit of Altered Mental Status;Uti. General: Denies: Chills, Night Sweats Constitutional: Denies: Chills, Fever Eyes: Denies: Pain, Vision change ENT: Denies: Ear Pain, Head Aches Skin: Denies: Lesions, Rash Pulmonary: Denies: Cough, Dyspnea Cardiovascular: Denies: Chest Pain, Palpitations Gastrointestinal: Denies: Nausea, Vomiting Genitourinary: Denies: Dysuria, Frequency Hematologic: Denies: Bleeding Excessively, Bruising Objective Physical Examination General Exam: Positive: Alert, Cooperative, No Acute Distress ENT Exam: Positive: Atraumatic, Mucous membr. moist/pink Neck Exam: Negative: JVD Chest Exam: Positive: Clear to auscultation, Normal air movement Heart Exam: Positive: Normal S1, Normal S2, Rate Normal Abdomen Exam: Positive: Soft, Negative: Tenderness Extremity Exam: Negative: Swelling, Tenderness Assessment /Plan Plan/VTE VTE Prophylaxis Ordered?: Yes Plan 1. Altered mental status with lethargy likely 2/2 UTI MRI of the brain with no acute findings CT chest shows no acute infiltrate or consolidation Urine culture pending, Blood Culture unrevealing at this time CT chest with no foci of infection found Cont on Ciprofloxacin for UTI Patient's mentation, and overall condition improved at this time We will have PT and OT work with her for further conditioning 2. Hx of Multiple Sclerosis. Patient with no acute focal neurological deficits MRI of the brain with no acute findings Continue Baclofen, Gabapentin 3. Obstructive sleep apnea. Patient in the midst of getting an outpatient work up for this Defer to her outpatient primary care physician for further follow up We will monitor her oximetry while she is here 4. History of coronary artery disease, NSTEMI Continue on aspirin and Plavix, Lipitor, beta blockade with metoprolol 5. Hypertension. Continue on metoprolol. 6. Hypothyroidism. TFT's noted Continue Levothyroxine 7. Moderate size hiatal hernia and achalasia. Continue on Protonix. 8. Gout. Continue allopurinol. 9. Deep vein thrombosis (DVT) prophylaxis with compression stockings. Disposition- PT, OT Evals ordered, will continue to monitor the patient's progress. VS, I&O, 24H, Fishbone Vital Signs/I&O Vital Signs Date Time Temp Pulse Resp B/P Pulse Ox O2 Delivery O2 Flow Rate FiO2 05/05/16 09:00 Nasal Cannula 1.0 05/05/16 06:00 96.2 67 18 162/76 93 I&O- Last 24 Hours up to 6 AM 05/05/16 05:59 Intake Total 1080 ml Balance 1080 ml Laboratory Data 24H LABS Laboratory Tests 2 05/05/16 05:10: Anion Gap 10, White Blood Count 13.5H, Red Blood Count 3.67L, Hemoglobin 11.0L, Hematocrit 34.6L, Mean Corpuscular Volume 94.2, Mean Corpuscular Hemoglobin 29.8 , Mean Corpuscular Hemoglobin Concent 31.7L, Red Cell Distribution Width 13.9, Platelet Count 174, Neutrophils (%) (Auto) 84.8H, Lymphocytes (%) (Auto) 9.1L, Monocytes (%) (Auto) 4.5, Eosinophils (%) (Auto) 0.2, Basophils (%) (Auto) 0.2, Neutrophils # (Auto) 11.5H, Lymphocytes # (Auto) 1.2L, Monocytes # (Auto) 0.6, Eosinophils # (Auto) 0.0, Basophils # (Auto) 0.0, Blood Urea Nitrogen 15, Creatinine 0.95, Sodium Level 145, Potassium Level 4.0, Chloride Level 108H, Carbon Dioxide Level 27, Calcium Level 8.3L, Glomerular Filtration Rate > 60.0, Large Unclassified Cells # 0.2, Large Unclassified Cells % 1.2 CBC/BMP Laboratory Tests 05/05/16 05:10 Calcium Level 8.3 L, Red Blood Count 3.67 L, Mean Corpuscular Volume 94.2, Mean Corpuscular Hemoglobin 29.8, Mean Corpuscular Hemoglobin Concent 31.7 L, Red Cell Distribution Width 13.9, Neutrophils (%) (Auto) 84.8 H, Lymphocytes (%) ( Auto) 9.1 L, Monocytes (%) (Auto) 4.5, Eosinophils (%) (Auto) 0.2, Basophils (% ) (Auto) 0.2, Neutrophils # (Auto) 11.5 H, Lymphocytes # (Auto) 1.2 L, Monocytes # (Auto) 0.6, Eosinophils # (Auto) 0.0, Basophils # (Auto) 0.0 Microbiology Microbiology 05/03/16 Blood Culture - Preliminary, Resulted No growth after 24 hours . All specim... 05/03/16 Blood Culture - Preliminary, Resulted No growth after 24 hours . All specim... 05/03/16 Urine Culture, Received Pending KIRK GARCÍA MD May 05, 2016 13:57
[2016-05-05 14:00] VITALS: BP 153/67
[2016-05-05] MEDS: METOPROLOL SUCC (TopROL XL) 50MG **XL** TAB PO SCH (20:21)
[2016-05-05] MEDS: ATORVASTATIN 20 MG TAB PO SCH (20:21)
[2016-05-05 22:00] VITALS: BP 173/76
[2016-05-05] MEDS: SODIUM CHLORIDE 0.9% INJ 10 ML SYR IV PRN (23:18)
--- NOTE | 2016-05-06 02:13 | EDDOCDS ---
Physician Documentation [facility] Name: Anny Gates Age: 71 yrs Sex: Female : 1945 Arrival Date: 05/03/2016 Time: 18:27 Bed TR1 Private MD: Radha Wiley A Disposition: 05/03/16 23:53 Hospitalization ordered by Kelly Rawls for Inpatient Admission. Preliminary diagnosis are Somnolence, Urinary tract infection, site not specified, Hypoxemia. - Bed requested for 5 [place]. - Status is Inpatient Admission. sls1 - Condition is Stable. - Problem is an ongoing problem. - Symptoms have improved. Historical: - Allergies: SULFA (SULFONAMIDES) (Rash); IODINEIODINE CONTAINING (Hives); PENICILLINS (Hives); - Home Meds: 1. albuterol sulfate 2.5 mg /3 mL (0.083 %) Nebulizer nebu 4 times per day (Last dose: 05/03/2016) 2. allopurinol 100 mg Oral tab 1 tab once daily 3. aspirin 81 mg Oral tab 1 tab once daily 4. atorvastatin 20 mg oral tab 1 tab once daily 5. Calcium + Vitamin D 600 mg calcium- 200 unit Oral tab twice a day 6. Centrum Silver oral tab daily 7. Plavix 75 mg Oral tab every other day (Last dose: 05/03/2016) 8. Enablex 7.5 mg oral Tb24 1 tab once daily 9. ferrous sulfate 325 mg (65 mg iron) Oral TbEC daily 10. Fosamax 35 mg Oral tab 1 tab Fridays 11. gabapentin 300 mg Oral tab three times a day 12. hydrocodone-acetaminophen 5-325 mg Oral tab q6h prn 13. potassium chloride 10 mEq Oral cpER 1 cap once daily 14. Levoxyl 112 mcg Oral tab 1 tab once daily 15. modafinil 200 mg oral tab 1 tab once daily 16. Nitrostat 0.4 mg SL subl 1 tab every 5 minutes 17. pantoprazole 40 mg oral TbEC 1 tab once daily 18. Sertraline 25 mg daily 19. vitamin E 400 unit Oral cap daily 20. Zyrtec 10 mg Oral tab 1 tab once daily 21. metoprolol tartrate 50 mg Oral tab 1 tab once daily 22. baclofen 10 mg Oral tab 1 tab twice a day - PMHx: Multiple Sclerosis; Sleep Apnea w/ CPAP; Hypothyroidism; Osteoporosis; ACS; NV; Cancer, Breast - Right; Hypertension; - PSHx: Stents, Coronary; infusaport insertion; Mastectomy- Right; lumbar spine x 2; - Social history: No barriers to communication noted, The patient speaks fluent Icelandic, Smoking status: Patient states former smoker of tobacco. - Family history: Not pertinent. - : The pt / caregiver states he / she is on anticoagulants: Plavix. Home medication list is obtained from the caregiver. - Exposure Risk Screening:: None identified. Vital Signs: 05/03 18:30 BP 165 / 69; Pulse 76; Resp 18; Temp 99.8(O); Pulse Ox 93% on R/A; Weight 79.38 kg / dem1 175 lbs (R); Height 5 ft. 0 in. (152.40 cm) (R); Pain 0/10; 19:18 BP 195 / 78 (auto/); jmb 19:18 Pulse 72 MON; Pulse Ox 83% ; jmb 19:43 BP 179 / 76 (auto/); jmb 19:43 Pulse 72 MON; Pulse Ox 89% ; jmb 20:13 BP 195 / 79 (auto/); jmb 20:13 Pulse 74 MON; Pulse Ox 86% ; jmb 20:43 BP 184 / 81 (auto/); jmb 20:46 Pulse 76 MON; Pulse Ox 85% ; jmb 21:13 BP 186 / 86 (auto/); jmb 21:13 Pulse 90 MON; Pulse Ox 90% ; jmb 22:13 BP 189 / 79 (auto/); jmb 22:13 Pulse 78 MON; Pulse Ox 80% ; jmb 22:43 BP 159 / 69 (auto/); jmb 22:43 Pulse 76 MON; Pulse Ox 97% on 3 lpm NC; jmb 23:43 BP 156 / 68 (auto/); jmb 23:43 Pulse 76 MON; Resp 20; Temp 98.0; Pulse Ox 96% ; jmb 05/04 01:04 BP 148 / 67; Pulse 78; Resp 20; Temp 98.4(O); Pulse Ox 97% on 3 lpm NC; Pain 0/10; jmb 05/03 18:30 Body Mass Index 34.18 (79.38 kg, 152.40 cm) dem1 MDM: 05/03 19:07 ECG WITH READING ER PHYS+CARDIAG ordered. EDMS 19:42 Call Respiratory ordered. cs11 19:42 -Blood Culture (Adults Only), peripheral from different site, or from device/port/PICC cs11 etc. if present ordered. 19:42 naloxone 2 mg IVP once ordered. cs11 19:43 -Arterial Blood Gas Ordered. EDMS 19:43 CBC with Diff Ordered. EDMS 19:43 Lactic Acid ([place]vis tube on ice) Ordered. EDMS 19:44 MED Profile Ordered. EDMS 19:44 Liver Profile Ordered. EDMS 19:44 Ammonia ([place] Tube on Ice, Not [place]a [place]) Ordered. EDMS 19:44 Acetaminophen Level Ordered. EDMS 19:44 Thyroid Profile Ordered. EDMS 19:44 Urinalysis Ordered. EDMS 19:44 -Blood Culture Ordered. EDMS 19:44 Urine Culture Ordered. EDMS 19:46 Cardiac Marker Panel Ordered. EDMS 19:46 -Blood Culture (Adults Only), peripheral from different site, or from device/port/PICC tmm1 etc. if present complete. 19:46 Call Respiratory complete. tmm1 19:48 BLOOD CULTURES Ordered. EDMS 19:50 Financial registration complete. kf3 19:54 [facility] Payment Agreement was scanned into People[employer] and attached to record. kf3 20:30 -Arterial Blood Gas Reviewed. cs11 20:30 CBC with Diff Reviewed. cs11 20:53 MED Profile Reviewed. cs11 20:53 Liver Profile Reviewed. cs11 20:53 Acetaminophen Level Reviewed. cs11 20:53 Lactic Acid (Purvis tube on ice) Reviewed. cs11 20:53 Ammonia ([place] Tube on Ice, Not [place]) Reviewed. cs11 20:53 Thyroid Profile Reviewed. cs11 20:53 Cardiac Marker Panel Reviewed. cs11 20:56 Dexamethasone 10 mg IV at bolus once ordered. cs11 20:56 diphenhydrAMINE 12.5 mg IVP once ordered. cs11 20:56 CT Head Without Contrast Ordered. EDMS 20:56 CT Chest Angio R/O PE Ordered. EDMS 20:59 NS 0.9% 500 ml IV at bolus once ordered. cs11 23:40 Urinalysis Reviewed. cs11 23:40 CT Head Without Contrast Reviewed. cs11 23:40 CT Chest Angio R/O PE Reviewed. cs11 23:41 Ciprofloxacin 400 mg IVPB at 200 mL/hr once over 60 mins ordered. cs11 23:44 BED REQUEST+ADM ordered. EDMS 23:55 Admission / Observation Status ordered. EDMS 23:55 BASIC METABOLIC PROFILE Ordered. EDMS 23:55 CBC WITH DIFFERENTIAL Ordered. EDMS 23:56 PHYSICAL THERAPY EVAL & TREAT ordered. EDMS 05/04 00:12 MRI Brain W/O FOLL BY WITH Ordered. EDMS 08:32 T-Sheet-- Draft Copy was scanned into People[employer] and attached to record. [facility] 05/05 20:01 ECG/EKG was scanned into [employer] and attached to record. klr Administered Medications: 05/03 20:13 Drug: naloxone 2 mg [naloxone 1 mg/mL injection syringe (2 mL)] Route: IVP; Site: [facility] Implantable Access Device; 22:39 Follow up: Response: No Adverse Reaction [facility] 21:04 Drug: Dexamethasone 10 mg [dexamethasone 4 mg/mL injection solution] Route: IV; Rate: jmb bolus; Site: Implantable Access Device; 22:38 Follow up: IV Status: Completed infusion [facility] 21:04 Drug: diphenhydrAMINE 12.5 mg [diphenhydramine 50 mg/mL injection solution (0.25 mL)] [facility] Route: IVP; Site: Implantable Access Device; 21:10 Drug: NS 0.9% 500 ml [sodium chloride 0.9 % intravenous solution] Route: IV; Rate: jmb bolus; Site: Implantable Access Device; 23:46 Drug: Ciprofloxacin 400 mg [ciprofloxacin 400 mg/200 mL in 5 % dextrose intravenous jmb piggyback] Route: IVPB; Rate: 200 mL/hr; Infused Over: 60 mins; Site: Implantable Access Device; 05/04 00:54 Follow up: IV Status: Completed infusion; IV Intake: 500ml tm5 Signatures: Dispatcher [employer] EDMI Bimal Kwan, Reg Reg kf3 Columba Perez RN Latanya Andrews RN RN sls1 Alejandro Gonzales, DO cs11 McLear, Ashtyn, GLEASON OPERATOR GLEASON OPERATOR tmm1 Fabrizio Davenport RN RN jmb Hoffert, Sarah seh Redder, Kathie Moe Navarrete RN RN sa Matice, Tonya RN tm5 The chart was reviewed and I authenticate all verbal orders and agree with the evaluation and treatment provided.Corrections: (The following items were deleted from the chart) 05/03 21:04 20:34 Misc. Nursing Order ordered. cs11 sergio 05/04 00:41 05/03 19:05 Home Meds: metoprolol succinate 50 mg Tb24 1 tab once daily; jjr sergio Attachments: 19:54 [facility] Payment Agreement [email or web address] 05/04 08:32 T-Sheet-- Draft Copy [facility] 05/05 20:01 ECG/EKG klr Chart Complete MTDD
--- NOTE | 2016-05-06 02:13 | EDDOCDS ---
Physician Documentation [facility] Name: Anny Gates Age: 71 yrs Sex: Female : 1945 Arrival Date: 05/03/2016 Time: 18:27 Bed TR1 Private MD: Radha Wiley A Disposition: 05/03/16 23:53 Hospitalization ordered by Kelly Rawls for Inpatient Admission. Preliminary diagnosis are Somnolence, Urinary tract infection, site not specified, Hypoxemia. - Bed requested for 5 [place]. - Status is Inpatient Admission. sls1 - Condition is Stable. - Problem is an ongoing problem. - Symptoms have improved. Historical: - Allergies: SULFA (SULFONAMIDES) (Rash); IODINEIODINE CONTAINING (Hives); PENICILLINS (Hives); - Home Meds: 1. albuterol sulfate 2.5 mg /3 mL (0.083 %) Nebulizer nebu 4 times per day (Last dose: 05/03/2016) 2. allopurinol 100 mg Oral tab 1 tab once daily 3. aspirin 81 mg Oral tab 1 tab once daily 4. atorvastatin 20 mg oral tab 1 tab once daily 5. Calcium + Vitamin D 600 mg calcium- 200 unit Oral tab twice a day 6. Centrum Silver oral tab daily 7. Plavix 75 mg Oral tab every other day (Last dose: 05/03/2016) 8. Enablex 7.5 mg oral Tb24 1 tab once daily 9. ferrous sulfate 325 mg (65 mg iron) Oral TbEC daily 10. Fosamax 35 mg Oral tab 1 tab Fridays 11. gabapentin 300 mg Oral tab three times a day 12. hydrocodone-acetaminophen 5-325 mg Oral tab q6h prn 13. potassium chloride 10 mEq Oral cpER 1 cap once daily 14. Levoxyl 112 mcg Oral tab 1 tab once daily 15. modafinil 200 mg oral tab 1 tab once daily 16. Nitrostat 0.4 mg SL subl 1 tab every 5 minutes 17. pantoprazole 40 mg oral TbEC 1 tab once daily 18. Sertraline 25 mg daily 19. vitamin E 400 unit Oral cap daily 20. Zyrtec 10 mg Oral tab 1 tab once daily 21. metoprolol tartrate 50 mg Oral tab 1 tab once daily 22. baclofen 10 mg Oral tab 1 tab twice a day - PMHx: Multiple Sclerosis; Sleep Apnea w/ CPAP; Hypothyroidism; Osteoporosis; ACS; [place]; Cancer, Breast - Right; Hypertension; - PSHx: Stents, Coronary; infusaport insertion; Mastectomy- Right; lumbar spine x 2; - Social history: No barriers to communication noted, The patient speaks fluent Greek, Smoking status: Patient states former smoker of tobacco. - Family history: Not pertinent. - : The pt / caregiver states he / she is on anticoagulants: Plavix. Home medication list is obtained from the caregiver. - Exposure Risk Screening:: None identified. Vital Signs: 05/03 18:30 BP 165 / 69; Pulse 76; Resp 18; Temp 99.8(O); Pulse Ox 93% on R/A; Weight 79.38 kg / dem1 175 lbs (R); Height 5 ft. 0 in. (152.40 cm) (R); Pain 0/10; 19:18 BP 195 / 78 (auto/); jmb 19:18 Pulse 72 MON; Pulse Ox 83% ; jmb 19:43 BP 179 / 76 (auto/); jmb 19:43 Pulse 72 MON; Pulse Ox 89% ; jmb 20:13 BP 195 / 79 (auto/); jmb 20:13 Pulse 74 MON; Pulse Ox 86% ; jmb 20:43 BP 184 / 81 (auto/); jmb 20:46 Pulse 76 MON; Pulse Ox 85% ; jmb 21:13 BP 186 / 86 (auto/); jmb 21:13 Pulse 90 MON; Pulse Ox 90% ; jmb 22:13 BP 189 / 79 (auto/); jmb 22:13 Pulse 78 MON; Pulse Ox 80% ; jmb 22:43 BP 159 / 69 (auto/); jmb 22:43 Pulse 76 MON; Pulse Ox 97% on 3 lpm NC; jmb 23:43 BP 156 / 68 (auto/); jmb 23:43 Pulse 76 MON; Resp 20; Temp 98.0; Pulse Ox 96% ; jmb 05/04 01:04 BP 148 / 67; Pulse 78; Resp 20; Temp 98.4(O); Pulse Ox 97% on 3 lpm NC; Pain 0/10; jmb 05/03 18:30 Body Mass Index 34.18 (79.38 kg, 152.40 cm) dem1 MDM: 05/03 19:07 ECG WITH READING ER PHYS+CARDIAG ordered. EDMS 19:42 Call Respiratory ordered. cs11 19:42 -Blood Culture (Adults Only), peripheral from different site, or from device/port/PICC cs11 etc. if present ordered. 19:42 naloxone 2 mg IVP once ordered. cs11 19:43 -Arterial Blood Gas Ordered. EDMS 19:43 CBC with Diff Ordered. EDMS 19:43 Lactic Acid ([place] tube on ice) Ordered. EDMS 19:44 MED Profile Ordered. EDMS 19:44 Liver Profile Ordered. EDMS 19:44 Ammonia ([place] Tube on Ice, Not [place]) Ordered. EDMS 19:44 Acetaminophen Level Ordered. EDMS 19:44 Thyroid Profile Ordered. EDMS 19:44 Urinalysis Ordered. EDMS 19:44 -Blood Culture Ordered. EDMS 19:44 Urine Culture Ordered. EDMS 19:46 Cardiac Marker Panel Ordered. EDMS 19:46 -Blood Culture (Adults Only), peripheral from different site, or from device/port/PICC tmm1 etc. if present complete. 19:46 Call Respiratory complete. tmm1 19:48 BLOOD CULTURES Ordered. EDMS 19:50 Financial registration complete. kf3 19:54 [facility] Payment Agreement was scanned into [employer] and attached to record. kf3 20:30 -Arterial Blood Gas Reviewed. cs11 20:30 CBC with Diff Reviewed. cs11 20:53 MED Profile Reviewed. cs11 20:53 Liver Profile Reviewed. cs11 20:53 Acetaminophen Level Reviewed. cs11 20:53 Lactic Acid (Purvis tube on ice) Reviewed. cs11 20:53 Ammonia ([place] Tube on Ice, Not [place]) Reviewed. cs11 20:53 Thyroid Profile Reviewed. cs11 20:53 Cardiac Marker Panel Reviewed. cs11 20:56 Dexamethasone 10 mg IV at bolus once ordered. cs11 20:56 diphenhydrAMINE 12.5 mg IVP once ordered. cs11 20:56 CT Head Without Contrast Ordered. EDMS 20:56 CT Chest Angio R/O PE Ordered. EDMS 20:59 NS 0.9% 500 ml IV at bolus once ordered. cs11 23:40 Urinalysis Reviewed. cs11 23:40 CT Head Without Contrast Reviewed. cs11 23:40 CT Chest Angio R/O PE Reviewed. cs11 23:41 Ciprofloxacin 400 mg IVPB at 200 mL/hr once over 60 mins ordered. cs11 23:44 BED REQUEST+ADM ordered. EDMS 23:55 Admission / Observation Status ordered. EDMS 23:55 BASIC METABOLIC PROFILE Ordered. EDMS 23:55 CBC WITH DIFFERENTIAL Ordered. EDMS 23:56 PHYSICAL THERAPY EVAL & TREAT ordered. EDMS 05/04 00:12 MRI Brain W/O FOLL BY WITH Ordered. EDMS 08:32 T-Sheet-- Draft Copy was scanned into [employer] and attached to record. [facility] 05/05 20:01 ECG/EKG was scanned into [employer] and attached to record. klr Administered Medications: 05/03 20:13 Drug: naloxone 2 mg [naloxone 1 mg/mL injection syringe (2 mL)] Route: IVP; Site: [facility] Implantable Access Device; 22:39 Follow up: Response: No Adverse Reaction [facility] 21:04 Drug: Dexamethasone 10 mg [dexamethasone 4 mg/mL injection solution] Route: IV; Rate: jmb bolus; Site: Implantable Access Device; 22:38 Follow up: IV Status: Completed infusion [facility] 21:04 Drug: diphenhydrAMINE 12.5 mg [diphenhydramine 50 mg/mL injection solution (0.25 mL)] [facility] Route: IVP; Site: Implantable Access Device; 21:10 Drug: NS 0.9% 500 ml [sodium chloride 0.9 % intravenous solution] Route: IV; Rate: jmb bolus; Site: Implantable Access Device; 23:46 Drug: Ciprofloxacin 400 mg [ciprofloxacin 400 mg/200 mL in 5 % dextrose intravenous jmb piggyback] Route: IVPB; Rate: 200 mL/hr; Infused Over: 60 mins; Site: Implantable Access Device; 05/04 00:54 Follow up: IV Status: Completed infusion; IV Intake: 500ml tm5 Signatures: Dispatcher [employer] EDCT Bimal Kwan, Reg Reg kf3 Columba Perez RN Latanya Andrews RN RN sls1 Alejandro Gonzales, DO cs11 McLear, Ashtyn, ACCOUNTING PROFESSIONAL ACCOUNTING PROFESSIONAL tmm1 Fabrizio Davenport RN RN jmb Hoffert, Sarah seh Redder, Kathie Moe Navarrete RN RN sa Matice, Tonya RN tm5 The chart was reviewed and I authenticate all verbal orders and agree with the evaluation and treatment provided.Corrections: (The following items were deleted from the chart) 05/03 21:04 20:34 Misc. Nursing Order ordered. cs11 sergio 05/04 00:41 05/03 19:05 Home Meds: metoprolol succinate 50 mg Tb24 1 tab once daily; jjr sergio Attachments: 19:54 [facility] Payment Agreement kf3 05/04 08:32 T-Sheet-- Draft Copy [facility] 05/05 20:01 ECG/EKG klr Chart Complete MTDD
--- NOTE | 2016-05-06 02:14 | EDDOCDS ---
Nurse's Notes [facility] Name: Anny Gates Age: 71 yrs Sex: Female : 1945 Arrival Date: 05/03/2016 Time: 18:27 Bed TR1 Private MD: Radha Wiley A Diagnosis: Somnolence;Urinary tract infection, site not specified;Hypoxemia Presentation: 05/03 18:48 Presenting complaint: chart from [facility] dated today states pt was seen jjr on 04/30/16 for altered mental status and dehydration, discharged the next day, pt continues with lethargy and slurred speech with pox readings in the upper 80's, pt denies SOB. The last date and time the patient was known to be well was was at an unknown time on an unknown date. No acute neurological deficit is noted. The patients blood glucose was checked before arriving to the hospital and was found to be normal. Adult Sepsis Screening: Patient has new or worsening altered mentation (1 point). Patient's respiratory rate is less than 22. Systolic blood pressure is greater than 100. Patient has a qSOFA score of 1- Negative Sepsis Screen. Suicide/Homicide risk assessment- the patient denies having any suicidal and/or homicidal ideations and does not present with any other emotional, behavioral or mental health complaints. Status: Patient is not a building services coordinator or dependent. Transition of care: patient was received from [facility]. 18:48 Acuity: FLACA Level 3 jjr 18:48 Method Of Arrival: Wheelchair jjr Triage Assessment: 19:06 The onset of the patients symptoms was more than three hours ago. General: Appears in jjr no apparent distress. Pain: Denies pain. Neurological: Level of Consciousness is awake, obeys commands, Reports weakness. Historical: - Allergies: SULFA (SULFONAMIDES) (Rash); IODINEIODINE CONTAINING (Hives); PENICILLINS (Hives); - Home Meds: 1. albuterol sulfate 2.5 mg /3 mL (0.083 %) Nebulizer nebu 4 times per day (Last dose: 05/03/2016) 2. allopurinol 100 mg Oral tab 1 tab once daily 3. aspirin 81 mg Oral tab 1 tab once daily 4. atorvastatin 20 mg oral tab 1 tab once daily 5. Calcium + Vitamin D 600 mg calcium- 200 unit Oral tab twice a day 6. Centrum Silver oral tab daily 7. Plavix 75 mg Oral tab every other day (Last dose: 05/03/2016) 8. Enablex 7.5 mg oral Tb24 1 tab once daily 9. ferrous sulfate 325 mg (65 mg iron) Oral TbEC daily 10. Fosamax 35 mg Oral tab 1 tab Fridays 11. gabapentin 300 mg Oral tab three times a day 12. hydrocodone-acetaminophen 5-325 mg Oral tab q6h prn 13. potassium chloride 10 mEq Oral cpER 1 cap once daily 14. Levoxyl 112 mcg Oral tab 1 tab once daily 15. modafinil 200 mg oral tab 1 tab once daily 16. Nitrostat 0.4 mg SL subl 1 tab every 5 minutes 17. pantoprazole 40 mg oral TbEC 1 tab once daily 18. Sertraline 25 mg daily 19. vitamin E 400 unit Oral cap daily 20. Zyrtec 10 mg Oral tab 1 tab once daily 21. metoprolol tartrate 50 mg Oral tab 1 tab once daily 22. baclofen 10 mg Oral tab 1 tab twice a day - PMHx: Multiple Sclerosis; Sleep Apnea w/ CPAP; Hypothyroidism; Osteoporosis; ACS; MA; Cancer, Breast - Right; Hypertension; - PSHx: Stents, Coronary; infusaport insertion; Mastectomy- Right; lumbar spine x 2; - Social history: No barriers to communication noted, The patient speaks fluent Azeri, Smoking status: Patient states former smoker of tobacco. - Family history: Not pertinent. - : The pt / caregiver states he / she is on anticoagulants: Plavix. Home medication list is obtained from the caregiver. - Exposure Risk Screening:: None identified. Screenin:48 Fall Risk. jjr 19:13 Screening information is obtained from the patient, the caregiver. Fall risk: At risk jmb due to immobility. Assistance ADL's: Requires assistance with meal preparation, this assistance is provided by residence staff, bathing, assistance is provided by residence staff, dressing, assistance is provided by residence staff, toileting, assistance is provided by residence staff, ambulation, assistance is provided by residence staff, housework, assistance is provided by residence staff. Abuse/DV Screen: The patient / caregiver reports he/she is: not in a situation that causes fear, pain or injury. Nutritional screening: No deficits noted. home support is adequate. 05/04 01:04 Advance Directives: Currently, there is no health care proxy. There is no active DNR jmb order. There is no living will. There is no Power of Splash Line Operator. Assessment: 05/03 19:13 General: Appears in no apparent distress, Behavior is appropriate for age, cooperative. jmb Pain: Denies pain. Neurological: Level of Consciousness is awake, alert, confused, Oriented to person, place, Facial symmetry appears normal, Facial symmetry: tongue is midline. Cardiovascular: Capillary refill < 3 seconds Heart tones S1 S2 present Edema is 2+ to left midcalf, left ankle, left foot, left toes, right midcalf, right ankle, right foot and right toes Pulses are all present. Rhythm is sinus rhythm No ectopy. Chest pain is denied. Respiratory: Airway is patent Respiratory effort is even, Respiratory pattern is regular, Breath sounds are diminished bilaterally. GI: Abdomen is obese, Bowel sounds present X 4 quads. hypoactive in right upper quadrant, left upper quadrant, right lower quadrant and left lower quadrant Abd is soft and non tender X 4 quads. Derm: Skin is pink, warm & dry. Musculoskeletal: Range of motion limited in all extremities. 20:14 General: Appears in no apparent distress, comfortable, Behavior is appropriate for age, jmb cooperative, Patient laying on stretcher, appears comfortable. NO voiced complaints at this time. Caregivers at bedside. . Neurological: Level of Consciousness is awake, alert, confused, Oriented to person, place. Respiratory: Airway is patent Respiratory effort is even, Respiratory pattern is regular. 20:43 General: Attempt to catheterize x 1 with assist from Ruthy Roman RN with no success. . jmb 20:55 General: Appears in no apparent distress, comfortable, Behavior is appropriate for age, jmb cooperative, Patient laying on stretcher, appears comfortable. NO voiced complaints at this time. . Neurological: Level of Consciousness is awake, alert, confused, Oriented to person, place. Respiratory: Airway is patent Respiratory effort is even, unlabored, Respiratory pattern is regular, symmetrical. 21:39 General: Appears in no apparent distress, comfortable, Behavior is appropriate for age, jmb cooperative, Patient laying on stretcher, appears comfortable. NO voiced complaints at this time. . Neurological: Level of Consciousness is awake, alert, confused, Oriented to person, place. Respiratory: Airway is patent Respiratory effort is even, unlabored, Respiratory pattern is regular, symmetrical. 22:14 General: Appears in no apparent distress, comfortable, Behavior is appropriate for age, jmb cooperative, Patient returned from CT. Patient appears comfortable. Patient denies discomfort at this time. . Pain: Denies pain. Neurological: Level of Consciousness is awake, alert, confused, Oriented to person, place. Neurological: Facial symmetry appears normal, Facial symmetry: tongue is midline. Cardiovascular: Capillary refill < 3 seconds Heart tones S1 S2 present. Respiratory: Airway is patent Respiratory effort is even, unlabored, Respiratory pattern is regular, symmetrical, Breath sounds are diminished bilaterally. GI: Abdomen is obese, Bowel sounds present X 4 quads. Abd is soft and non tender X 4 quads. Derm: Skin is pink, warm & dry. Musculoskeletal: Range of motion limited in all extremities. 22:49 General: Appears in no apparent distress, comfortable, Behavior is appropriate for age, jmb cooperative. Neurological: Level of Consciousness is awake, alert, confused, Oriented to person, place. Respiratory: Airway is patent Respiratory effort is even, unlabored, Respiratory pattern is regular, symmetrical. 23:25 General: Appears in no apparent distress, comfortable, Behavior is appropriate for age, jmb cooperative. Neurological: Level of Consciousness is awake, alert, confused, Oriented to person, place. Respiratory: Airway is patent Respiratory effort is even, unlabored, Respiratory pattern is regular, symmetrical. 02/25 00:42 General: Appears in no apparent distress, comfortable, Behavior is appropriate for age, jmb cooperative, Dr. Remy in with patient and caretakers. NO voiced complaints at this time. . Neurological: Level of Consciousness is awake, alert, confused, Oriented to person, place, Facial symmetry appears normal, Facial symmetry: tongue is midline. Respiratory: Airway is patent Respiratory effort is even, unlabored, Respiratory pattern is regular, symmetrical. 01:04 General: Appears in no apparent distress, comfortable, Behavior is appropriate for age, jmb cooperative, Patient laying on stretcher, no voiced complaints at this time. . General: Patient ready for transport to [facility] after MRI. Neurological: Level of Consciousness is awake, alert, confused, Oriented to person, place. Respiratory: Airway is patent Respiratory effort is even, unlabored, Respiratory pattern is regular, symmetrical. Vital Signs: 05/03 18:30 BP 165 / 69; Pulse 76; Resp 18; Temp 99.8(O); Pulse Ox 93% on R/A; Weight 79.38 kg (R); dem1 Height 5 ft. 0 in. (152.40 cm) (R); Pain 0/10; 19:18 BP 195 / 78 (auto/); jmb 19:18 Pulse 72 MON; Pulse Ox 83% ; jmb 19:43 BP 179 / 76 (auto/); jmb 19:43 Pulse 72 MON; Pulse Ox 89% ; jmb 20:13 BP 195 / 79 (auto/); jmb 20:13 Pulse 74 MON; Pulse Ox 86% ; jmb 20:43 BP 184 / 81 (auto/); jmb 20:46 Pulse 76 MON; Pulse Ox 85% ; jmb 21:13 BP 186 / 86 (auto/); jmb 21:13 Pulse 90 MON; Pulse Ox 90% ; jmb 22:13 BP 189 / 79 (auto/); jmb 22:13 Pulse 78 MON; Pulse Ox 80% ; jmb 22:43 BP 159 / 69 (auto/); jmb 22:43 Pulse 76 MON; Pulse Ox 97% on 3 lpm NC; jmb 23:43 BP 156 / 68 (auto/); jmb 23:43 Pulse 76 MON; Resp 20; Temp 98.0; Pulse Ox 96% ; b 05/04 01:04 BP 148 / 67; Pulse 78; Resp 20; Temp 98.4(O); Pulse Ox 97% on 3 lpm NC; Pain 0/10; b 05/03 18:30 Body Mass Index 34.18 (79.38 kg, 152.40 cm) [facility] Vitals: 05/03 18:30 Log In Time: May 03, 2016 at 18:26. RN notified that patient meets [facility] criteria. 05/04 01:06 Glucose Measurement D-stick deferred by provider. [facility] ED Course: 05/03 18:29 Patient visited by Rodney Dumont. dem1 18:29 Radha Wiley is Private Physician. dem1 18:29 Patient moved to Waiting dem1 18:48 Dagoberto Levi, RN is Primary Nurse. jjr 18:48 Patient moved to 10 jjr 18:51 Triage Initiated jjr 18:58 Alejandro Gonzales DO is Attending Physician. cs11 18:58 Patient visited by Alejandro Gonzales DO. cs11 19:13 The patient / caregiver is instructed regarding the plan of care and ED course. Cardiac jmb monitor on. 19:16 Patient visited by Fabrizio Davenport RN. jmb 19:21 EKG done. (by ED staff). Reviewed by Alejandro Gonzales DO. jmv 19:22 Patient visited by Alexi Dillard PCA. jmv 19:22 Pt greeted and oriented to ED. Patient advised of names of staff involved in care, jmv location of call garber, wait times and NPO status. Patient has correct armband on for positive identification. Placed in gown. Bed in low position. Call light in reach. Side rails up X2. 19:52 Patient name changed from Anny\S\\S\Gates\S\ to Anny\S\Lebel\S\Gates. EDMS 19:54 [facility] Payment Agreement was scanned into [employer] and attached to record. kf3 20:14 Patient visited by Fabrizio Davenport RN. jmb 20:14 Lactic Acid (Purvis tube on ice) Sent. jmb 20:24 -Arterial Blood Gas Sent. jh6 20:28 Accessed using accessed w/ # 20 Gunderson needle, sterile technique, per hospital protocol. jmb Port-a-Cath in patient's anterior aspect of right upper chest. Clean & dry. Dressing intact. Good blood return. Flushes easily. 20:29 Patient visited by Fabrizio Davenport RN. jmb 20:56 Patient visited by Fabrizio Davenport RN. jmb 21:40 Patient visited by Fabrizio Davenport RN. jmb 22:16 Patient visited by Fabrizio Davenport RN. jmb 22:43 CT Head Without Contrast Returned. EDMS 22:43 CT Chest Angio R/O PE Returned. EDMS 22:50 Patient visited by Fabrizio Davenport RN. jmb 23:02 Primary Nurse role handed off by Dagoberto Levi, ALEX jb5 23:25 Patient visited by Fabrizio Davenport RN. jmb 23:36 BLOOD CULTURES Sent. jmb 23:52 Kelly Remy is Hospitalizing Provider. cs11 05/04 00:42 Patient visited by Fabrizio Davenport RN. b 01:04 No procedures done that require assistance. jmb 01:05 Patient moved to [place] [id number] 08:32 T-Sheet-- Draft Copy was scanned into [employer] and attached to record. [facility] 05/05 20:01 ECG/EKG was scanned into [employer] and attached to record. klr Administered Medications: 05/03 20:13 Drug: naloxone 2 mg [naloxone 1 mg/mL injection syringe (2 mL)] Route: IVP; Site: [facility] Implantable Access Device; 22:39 Follow up: Response: No Adverse Reaction [facility] 21:04 Drug: Dexamethasone 10 mg [dexamethasone 4 mg/mL injection solution] Route: IV; Rate: jmb bolus; Site: Implantable Access Device; 22:38 Follow up: IV Status: Completed infusion [facility] 21:04 Drug: diphenhydrAMINE 12.5 mg [diphenhydramine 50 mg/mL injection solution (0.25 mL)] [facility] Route: IVP; Site: Implantable Access Device; 21:10 Drug: NS 0.9% 500 ml [sodium chloride 0.9 % intravenous solution] Route: IV; Rate: jmb bolus; Site: Implantable Access Device; 23:46 Drug: Ciprofloxacin 400 mg [ciprofloxacin 400 mg/200 mL in 5 % dextrose intravenous b piggyback] Route: IVPB; Rate: 200 mL/hr; Infused Over: 60 mins; Site: Implantable Access Device; 05/04 00:54 Follow up: IV Status: Completed infusion; IV Intake: 500ml tm5 Intake: 00:54 IV: 500.00ml; Total: 500.00ml. tm5 RT: 05/03 20:25 ABG's drawn from right brachial artery pressure held for 5 minutes no bleeding noted jh6 pressure bandage applied specimen sent pt. tolerated well. Order Results: Lab Order: -Arterial Blood Gas; SPEC'M 05/03/16 20:06 Test: ABG pH (ARTERIAL); Value: 7.413; Range: 7.350-7.450; Units: UNITS; Status: F Test: ABG PARTIAL PRESSURE CO2; Value: 45.7; Range: 35.0-45.0; Abnormal: Above high normal; Units: mmHg; Status: F Test: ABG PARTIAL PRESSURE O2; Value: 52.7; Range: 75.0-100.0; Abnormal: Below low normal; Units: mmHg; Status: F Test: ABG TOTAL CO2; Value: 29.9; Range: 23.0-31.0; Units: MEQ/L; Status: F Test: ABG HCO3; Value: 28.5; Range: 22.0-26.0; Abnormal: Above high normal; Units: MEQ/L; Status: F Test: ABG BASE EXCESS; Value: 3.3; Range: -2.0-2.0; Abnormal: Above high normal; Status: F Test: ABG STANDARD HCO3; Value: 27.2; Range: 22.0-26.0; Abnormal: Above high normal; Units: MEQ/L; Status: F Test: ABG O2 SATURATION; Value: 89.0; Range: 95.0-99.0; Abnormal: Below low normal; Units: %; Status: F Test: ABG DEVICE; Value: NASAL FLORY; Status: F Lab Order: CBC with Diff; SPEC'M 05/03/16 20:05 Test: WHITE BLOOD COUNT; Value: 11.8; Range: 4.0-10.0; Abnormal: Above high normal; Units: K/mm3; Status: F Test: RED BLOOD COUNT; Value: 4.19; Range: 4.00-5.40; Units: M/mm3; Status: F Test: HEMOGLOBIN; Value: 12.6; Range: 12.0-16.0; Units: g/dl; Status: F Test: HEMATOCRIT; Value: 39.0; Range: 36.0-47.0; Units: %; Status: F Test: MEAN CORPUSCULAR VOLUME; Value: 93.0; Range: 80.0-96.0; Units: fl; Status: F Test: MEAN CORPUSCULAR HEMOGLOBIN; Value: 30.1; Range: 27.0-33.0; Units: pg; Status: F Test: MEAN CORPUSCULAR HGB CONC; Value: 32.4; Range: 32.0-36.5; Units: g/dl; Status: F Test: RED CELL DISTRIBUTION WIDTH; Value: 14.0; Range: 11.5-14.5; Units: %; Status: F Test: PLATELET COUNT, AUTOMATED; Value: 192; Range: 150-450; Units: k/mm3; Status: F Test: NEUTROPHILS %; Value: 83.9; Range: 36.0-66.0; Abnormal: Above high normal; Units: %; Status: F Test: LYMPH %; Value: 7.6; Range: 24.0-44.0; Abnormal: Below low normal; Units: %; Status: F Test: MONO %; Value: 3.9; Range: 0.0-5.0; Units: %; Status: F Test: EOS %; Value: 2.8; Range: 0.0-3.0; Units: %; Status: F Test: BASO %; Value: 0.4; Range: 0.0-1.0; Units: %; Status: F Test: LARGE UNSTAINED CELL %; Value: 1.4; Range: 0.0-4.0; Units: %; Status: F Test: NEUTROPHILS #; Value: 9.9; Range: 1.8-7.7; Abnormal: Above high normal; Units: K/mm3; Status: F Test: LYMPH #; Value: 0.9; Range: 1.5-4.5; Abnormal: Below low normal; Units: K/mm3; Status: F Test: MONO #; Value: 0.5; Range: 0.0-0.8; Units: K/mm3; Status: F Test: EOS #; Value: 0.3; Range: 0.0-0.50; Units: K/mm3; Status: F Test: BASO #; Value: 0.0; Range: 0.0-0.2; Units: K/mm3; Status: F Test: LARGE UNSTAINED CELL #; Value: 0.2; Range: 0.0-0.4; Units: K/mm3; Status: F Lab Order: Lactic Acid (Purvis tube on ice); SPEC'M 05/03/16 20:05 Test: LACTIC ACID SEPSIS PROTOCOL; Value: 0.5; Range: 0.4-2.0; Units: MMOL/L; Status: F Lab Order: MED Profile; SPEC'M 05/03/16 20:05 Test: GLUCOSE, FASTING; Value: 95; Range: 83-110; Units: MG/DL; Status: F Test: BLOOD UREA NITROGEN; Value: 18; Range: 7-18; Units: MG/DL; Status: F Test: CREATININE FOR GFR; Value: 0.96; Range: 0.55-1.02; Units: MG/DL; Status: F Test: GLOMERULAR FILTRATION RATE; Value: > 60.0; Range: >39; Status: F Test: SODIUM LEVEL; Value: 144; Range: 136-145; Units: MEQ/L; Status: F Test: POTASSIUM SERUM; Value: 4.4; Range: 3.5-5.1; Units: MEQ/L; Status: F Test: CHLORIDE LEVEL; Value: 105; Range: 98-107; Units: MEQ/L; Status: F Test: CARBON DIOXIDE LEVEL; Value: 30; Range: 21-32; Units: MEQ/L; Status: F Test: ANION GAP; Value: 9; Range: 8-16; Units: MEQ/L; Status: F Test: CALCIUM LEVEL; Value: 8.5; Range: 8.8-10.2; Abnormal: Below low normal; Units: MG/DL; Status: F Test Note: ; Units are mL/min/1.73 m2 Chronic Kidney Disease Staging per NKF: Stage I & II GFR >=60 Normal to Mildly Decreased Stage III GFR 30-59 Moderately Decreased Stage IV GFR 15-29 Severely Decreased Stage V GFR <15 Very Little GFR Left ESRD GFR <15 on COMPANY TANKER TRUCK DRIVER Lab Order: Liver Profile; [facility] 05/03/16 20:05 Test: BILIRUBIN,TOTAL; Value: 0.3; Range: 0.2-1.0; Units: MG/DL; Status: F Test: BILIRUBIN,DIRECT; Value: 0.1; Range: 0.0-0.2; Units: MG/DL; Status: F Test: TOTAL PROTEIN; Value: 7.1; Range: 6.4-8.2; Units: GM/DL; Status: F Test: ALBUMIN; Value: 3.4; Range: 3.2-5.2; Units: GM/DL; Status: F Test: ALBUMIN/GLOBULIN RATIO; Value: 0.92; Range: 1.00-1.93; Abnormal: Below low normal; Status: F Test: AST/SGOT; Value: 30; Range: 15-37; Units: U/L; Status: F Test: ALT/SGPT; Value: 25; Range: 12-78; Units: U/L; Status: F Test: ALKALINE PHOSPHATASE; Value: 95; Range: 45-117; Units: U/L; Status: F Lab Order: Ammonia ([place] Tube on Ice, Not [place]); [facility] 05/03/16 20:05 Test: AMMONIA; Value: 14; Range: <32; Units: uMOL/L; Status: F Lab Order: Acetaminophen Level; [facility] 05/03/16 20:05 Test: ACETAMINOPHEN LEVEL; Value: < 2.0; Range: 10.0-30.0; Abnormal: Below low normal; Units: UG/ML; Status: F Lab Order: Thyroid Profile; [facility] 05/03/16 20:05 Test: T UPTAKE; Value: 36; Range: 30-39; Units: %; Status: F Test: THYROXINE (T4); Value: 7.4; Range: 4.5-12.0; Units: UG/DL; Status: F Test: FREE THYROXINE INDEX; Value: 2.7; Range: 1.3-4.8; Units: %; Status: F Test: THYROID STIMULATING HORMONE; Value: 1.640; Range: 0.358-3.740; Units: uIU/ML; Status: F Lab Order: Urinalysis; [facility] 05/03/16 23:08 Test: APPEARANCE, URINE; Value: CLOUDY; Range: CLEAR; Abnormal: Above high normal; Status: F Test: COLOR, URINE; Value: YELLOW; Range: YELLOW; Status: F Test: PH,URINE; Value: 6.0; Range: 5.0-9.0; Units: UNITS; Status: F Test: SPECIFIC GRAVITY URINE AUTO; Value: 1.018; Range: 1.002-1.035; Status: F Test: PROTEIN, URINE AUTO; Value: 1+; Range: NEGATIVE; Abnormal: Above high normal; Units: mg/dL; Status: F Test: GLUCOSE, URINE (UA) AUTO; Value: NEGATIVE; Range: NEGATIVE; Units: mg/dL; Status: F Test: KETONE, URINE AUTO; Value: NEGATIVE; Range: NEGATIVE; Units: mg/dL; Status: F Test: UROBILINOGEN, URINE AUTO; Value: 0.2; Range: 0.0-2.0; Units: mg/dL; Status: F Test: BILIRUBIN, URINE AUTO; Value: NEGATIVE; Range: NEGATIVE; Status: F Test: NITRITE, URINE AUTO; Value: POSITIVE; Range: NEGATIVE; Status: F Test: LEUKOCYTE ESTERASE, URINE AUTO; Value: 3+; Range: NEGATIVE; Abnormal: Above high normal; Status: F Test: BLOOD, URINE BLOOD; Value: 2+; Range: NEGATIVE; Abnormal: Above high normal; Status: F Test: WBC, URINE AUTO; Value: TNTC; Range: 0-3; Abnormal: Above high normal; Units: /HPF; Status: F Test: RBC, URINE AUTO; Value: 74; Range: 0-3; Abnormal: Above high normal; Units: /HPF; Status: F Test: BACTERIA, URINE AUTO; Value: 2+; Range: NEGATIVE; Abnormal: Above high normal; Status: F Test: SQUAMOUS EPITHELIAL CELL UR AU; Value: 0; Range: 0-6; Units: /HPF; Status: F Test: HYALINE CAST, URINE AUTO; Value: 0; Range: 0-1; Units: /LPF; Status: F Lab Order: Cardiac Marker Panel; SPEC'M 05/03/16 20:05 Test: CPK CREATINE PHOSPHOKINASE; Value: 111; Range: 26-192; Units: U/L; Status: F Test: CK-MB VALUE MASS; Value: 1.2; Range: 0.0-3.6; Units: NG/ML; Status: F Test: MB/CK RELATIVE INDEX; Value: 1.08; Range: < OR =4; Status: F Test: TROPONIN I; Value: < 0.02; Range: < 0.10; Units: NG/ML; Status: F Test Note: ; DIAGNOSIS CRITERIA MMB ng/ml Relative Index (RI) NON-AMI < or = 5 N/A PURVIS ZONE > 5 < or = 4 AMI > 5 > 4 Radiology Order: CT Head Without Contrast Test: CT Head Without Contrast REASON FOR EXAMINATION: Syncope; ; CT of the head; Clinical history: syncope.; Protocol: Multiple axial CT images obtained with 5 mm slice thickness were obtained through the head; without administration of contrast.; Findings: The ventricles and sulci are symmetric but prominent in size bilaterally. There are periven; tricular areas of low attenuation throughout the deep white matter. There is no evidence of acute hem; orrhage or infarct. There is no midline shift, mass effect, or extra-axial fluid collection. The osse; ous structures are unremarkable. The visualized paranasal sinuses and mastoid air cells are clear.; Impression: No acute hemorrhage or infarct. 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 Coronal and sagittal reconstructions we; re also obtained.; No comparison is available.; Findings: The pulmonary arteries are well-opacified with contrast, with no intraluminal filling defec; ts to suggest embolism. The thoracic aorta demonstrates moderate atherosclerotic calcifications but i; s otherwise unremarkable. Thyroid gland is within normal limits. There is no thoracic lymphadenopathy; . There are no pericardial or pleural effusions. The lungs are clear. There is a moderate sized hiata; l hernia. Achalasia of the esophagus is noted. Limited imaging of the upper abdomen is unremarkable.; There are no suspicious osseous lesions.; Impression:; 1. No evidence of pulmonary embolism.; 2. No acute intrapulmonary disease.; 3. Moderate sized hiatal hernia with achalasia appreciated.; 4. Moderate atherosclerosis of the thoracic aorta. No evidence of aneurysm or dissection.; ; Outcome: 23:53 Decision to Hospitalize by Provider. cs11 05/04 01:04 Discharge Assessment: Patient awake, alert and oriented x 3. No cognitive and/or jmb functional deficits noted. Patient verbalized understanding of disposition instructions. Patient awake and alert. confused, Oriented to person, place, Patient verbalized understanding of disposition instructions. Patient has no functional deficits. patient administered narcotics - no. The following High Risk Discharge criteria are identified: None. Admitted to Med/Surg accompanied by tech, via stretcher, with oxygen, with chart. Condition: stable Condition: improved. CT Study completed. Property :Personal belongings accompany Pt. 01:13 Patient left the ED. [email or web address] Signatures: Dispatcher [employer] EDMS Flaquita Pate, QUANTITY SURVEYOR QUANTITY SURVEYOR [id number] Bimal Kwan, Reg Reg kf3 Columba Perez, RN RN Ramez Morillo 6 Latanya Robert RN RN sls1 Rodney Dumont1 Alejandro Gonzales, DO cs11 Fabrizio Davenport,RN RN jmb Judith, Maria Isabel Caballero Jose, QUANTITY SURVEYOR QUANTITY SURVEYOR jmv Ruthy Roman,RN RN tm5 Corrections: (The following items were deleted from the chart) 00:41 05/03 19:05 Home Meds: metoprolol succinate 50 mg Tb24 1 tab once daily; [place] Chart Complete MTDD
[2016-05-06] MEDS: LEVOTHYROXINE 0.112 MG TAB (112 MCG) PO SCH (05:46)
[2016-05-06 06:00] VITALS: BP 136/62
[2016-05-06 06:59] LABS: BASO % 0.5 % (0.0-1.0); EOS # 0.4 K/mm3 (0.0-0.50); EOS % 3.6 % (0.0-3.0); LARGE UNSTAINED CELL # 0.1 K/mm3 (0.0-0.4); LARGE UNSTAINED CELL % 1.2 % (0.0-4.0); LYMPH # 2.2 K/mm3 (1.5-4.5); LYMPH % 22.3 % (24.0-44.0); MEAN CORPUSCULAR HEMOGLOBIN 30.2 pg (27.0-33.0); MEAN CORPUSCULAR VOLUME 94.5 fl (80.0-96.0); MONO # 0.6 K/mm3 (0.0-0.8); MONO % 6.4 % (0.0-5.0); NEUTROPHILS # 6.3 K/mm3 (1.8-7.7); NEUTROPHILS % 65.9 % (36.0-66.0); PLATELET COUNT, AUTOMATED 171 k/mm3 (150-450); RED CELL DISTRIBUTION WIDTH 14.1 % (11.5-14.5); WHITE BLOOD COUNT 9.5 K/mm3 (4.0-10.0)
[2016-05-06 07:08] LABS: ANION GAP 9 MEQ/L (8-16); BLOOD UREA NITROGEN 11 MG/DL (7-18); CALCIUM LEVEL 8.9 MG/DL (8.8-10.2); CARBON DIOXIDE LEVEL 27 MEQ/L (21-32); CHLORIDE LEVEL 108 MEQ/L (98-107); CREATININE FOR GFR 0.97 MG/DL (0.55-1.02); GLOMERULAR FILTRATION RATE > 60.0 (>39); GLUCOSE, FASTING 79 MG/DL (83-110); POTASSIUM SERUM 3.7 MEQ/L (3.5-5.1); SODIUM LEVEL 144 MEQ/L (136-145)
[2016-05-06] MEDS ORDERED: CLOPIDOGREL 75 MG TAB PO SCH (09:00)
[2016-05-06] MEDS: MODAFINIL 200MG TABLET PO SCH (09:28)
[2016-05-06] MEDS: POTASSIUM CHLORIDE 10 MEQ SR TABLET PO SCH (09:28)
[2016-05-06] MEDS: SERTRALINE HCL 50 MG TAB PO SCH (09:28)
[2016-05-06] MEDS: MULTIVITAMINS/MINERALS THERAP 1 TAB PO SCH (09:29)
[2016-05-06] MEDS: VITAMIN E 400 INTERNATIONAL UNITS CAP PO SCH (09:29)
[2016-05-06] MEDS: ASPIRIN 81 MG ENTERIC TAB PO SCH (09:29)
[2016-05-06] MEDS: FERROUS SULFATE 325MG TAB PO SCH (09:29)
[2016-05-06] MEDS: CETIRIZINE (ZyrTEC) 10 MG TAB PO SCH (09:29)
[2016-05-06] MEDS: GABAPENTIN 300 MG CAP PO SCH ×3 (09:29→20:31)
[2016-05-06] MEDS: BACLOFEN 10 MG TAB PO SCH ×2 (09:29→20:31)
[2016-05-06] MEDS: PANTOPRAZOLE 40MG TAB (PROTONIX) PO SCH (09:29)
[2016-05-06] MEDS: ALLOPURINOL 100 MG TAB PO SCH (09:29)
[2016-05-06] MEDS: SODIUM CHLORIDE 0.9% INJ 10 ML SYR IV SCH (09:30)
--- NOTE | 2016-05-06 11:05 | IPNPDOC ---
Subjective Date Seen The patient was seen on 05/06/16. Subjective Chief Complaint/HPI The patient is a 71-year-old female admitted with a reason for visit of Altered Mental Status;Uti. General: Denies: Chills, Night Sweats Constitutional: Denies: Chills, Fever Eyes: Denies: Pain, Vision change ENT: Denies: Ear Pain, Head Aches Skin: Denies: Lesions, Rash Pulmonary: Denies: Cough, Dyspnea Cardiovascular: Denies: Chest Pain, Palpitations Gastrointestinal: Denies: Nausea, Vomiting Genitourinary: Denies: Dysuria, Frequency Hematologic: Denies: Bleeding Excessively, Bruising Objective Physical Examination General Exam: Positive: Alert, Cooperative, No Acute Distress ENT Exam: Positive: Atraumatic, Mucous membr. moist/pink Neck Exam: Negative: JVD Chest Exam: Positive: Clear to auscultation, Normal air movement Heart Exam: Positive: Normal S1, Normal S2, Rate Normal Abdomen Exam: Positive: Soft Extremity Exam: Negative: Swelling, Tenderness Assessment /Plan Plan/VTE VTE Prophylaxis Ordered?: Yes Plan 1. Altered mental status with lethargy likely 2/2 UTI MRI of the brain with no acute findings CT chest shows no acute infiltrate or consolidation Urine culture noted, Blood Culture unrevealing at this time CT chest with no foci of infection found Cont on Ciprofloxacin for UTI Patient's mentation, and overall condition has improved significantly at this time We will have PT and OT work with her for further conditioning 2. Hx of Multiple Sclerosis. Patient with no acute focal neurological deficits MRI of the brain with no acute findings Continue Baclofen, Gabapentin 3. Obstructive sleep apnea. Patient in the midst of getting an outpatient work up for this Defer to her outpatient primary care physician for further follow up We will monitor her oximetry while she is here 4. History of coronary artery disease, NSTEMI Continue on aspirin and Plavix, Lipitor, beta blockade with metoprolol 5. Hypertension. Continue on metoprolol. 6. Hypothyroidism. TFT's noted Continue Levothyroxine 7. Moderate size hiatal hernia and achalasia. Continue on Protonix. 8. Gout. Continue allopurinol. 9. Deep vein thrombosis (DVT) prophylaxis with compression stockings. Disposition- PT, OT Evals ordered, will continue to monitor the patient's progress. VS, I&O, 24H, Fishbone Vital Signs/I&O Vital Signs Date Time Temp Pulse Resp B/P Pulse Ox O2 Delivery O2 Flow Rate FiO2 05/06/16 06:00 98.5 63 18 136/62 97 Room Air 05/05/16 20:00 1.0 I&O- Last 24 Hours up to 6 AM 05/06/16 05:59 Intake Total 980 ml Balance 980 ml Laboratory Data 24H LABS Laboratory Tests 2 05/06/16 06:22: Anion Gap 9, White Blood Count 9.5, Red Blood Count 3.92L, Hemoglobin 11.9L, Hematocrit 37.0, Mean Corpuscular Volume 94.5, Mean Corpuscular Hemoglobin 30.2 , Mean Corpuscular Hemoglobin Concent 32.0, Red Cell Distribution Width 14.1, Platelet Count 171, Neutrophils (%) (Auto) 65.9, Lymphocytes (%) (Auto) 22.3L, Monocytes (%) (Auto) 6.4H, Eosinophils (%) (Auto) 3.6H, Basophils (%) (Auto) 0.5 , Neutrophils # (Auto) 6.3, Lymphocytes # (Auto) 2.2, Monocytes # (Auto) 0.6, Eosinophils # (Auto) 0.4, Basophils # (Auto) 0.0, Blood Urea Nitrogen 11, Creatinine 0.97, Sodium Level 144, Potassium Level 3.7, Chloride Level 108H, Carbon Dioxide Level 27, Calcium Level 8.9, Glomerular Filtration Rate > 60.0, Large Unclassified Cells # 0.1, Large Unclassified Cells % 1.2 CBC/BMP Laboratory Tests 05/06/16 06:22 Calcium Level 8.9, Red Blood Count 3.92 L, Mean Corpuscular Volume 94.5, Mean Corpuscular Hemoglobin 30.2, Mean Corpuscular Hemoglobin Concent 32.0, Red Cell Distribution Width 14.1, Neutrophils (%) (Auto) 65.9, Lymphocytes (%) (Auto) 22.3 L, Monocytes (%) (Auto) 6.4 H, Eosinophils (%) (Auto) 3.6 H, Basophils (%) (Auto) 0.5, Neutrophils # (Auto) 6.3, Lymphocytes # (Auto) 2.2, Monocytes # ( Auto) 0.6, Eosinophils # (Auto) 0.4, Basophils # (Auto) 0.0 [facility] 05/03/16 Blood Culture - Preliminary, Resulted No Growth after 48 hours. All Specime... 05/03/16 Blood Culture - Preliminary, Resulted No Growth after 48 hours. All Specime... 05/05/16 Respiratory Virus Panel (PCR) (LANNY) - Final, Complete 05/03/16 Urine Culture - Final, Complete Citrobacter Youngae KIRK GARCÍA MD May 06, 2016 11:05
[2016-05-06 14:00] VITALS: BP 161/85
[2016-05-06] MEDS: CIPROFLOXACIN 250 MG TAB PO SCH (17:13)
[2016-05-06 20:31] VITALS: BP 172/74
[2016-05-06] MEDS: METOPROLOL SUCC (TopROL XL) 50MG **XL** TAB PO SCH (20:31)
[2016-05-06] MEDS: ATORVASTATIN 20 MG TAB PO SCH (20:31)
[2016-05-06 22:00] VITALS: BP 172/74
[2016-05-07] MEDS: CIPROFLOXACIN 250 MG TAB PO SCH (05:40)
[2016-05-07] MEDS: LEVOTHYROXINE 0.112 MG TAB (112 MCG) PO SCH (05:40)
[2016-05-07 06:00] VITALS: BP 155/70
[2016-05-07 09:11] VITALS: BP 134/68
[2016-05-07] MEDS: PANTOPRAZOLE 40MG TAB (PROTONIX) PO SCH (09:54)
[2016-05-07] MEDS: GABAPENTIN 300 MG CAP PO SCH (09:54)
[2016-05-07] MEDS: CETIRIZINE (ZyrTEC) 10 MG TAB PO SCH (09:54)
[2016-05-07] MEDS: POTASSIUM CHLORIDE 10 MEQ SR TABLET PO SCH (09:55)
[2016-05-07] MEDS: MULTIVITAMINS/MINERALS THERAP 1 TAB PO SCH (09:56)
[2016-05-07] MEDS: ASPIRIN 81 MG ENTERIC TAB PO SCH (09:56)
[2016-05-07] MEDS: BACLOFEN 10 MG TAB PO SCH (09:56)
[2016-05-07] MEDS: SERTRALINE HCL 50 MG TAB PO SCH (09:56)
[2016-05-07] MEDS: ALLOPURINOL 100 MG TAB PO SCH (09:56)
[2016-05-07] MEDS: FERROUS SULFATE 325MG TAB PO SCH (09:56)
[2016-05-07] MEDS: MODAFINIL 200MG TABLET PO SCH (09:57)
[2016-05-07] MEDS: VITAMIN E 400 INTERNATIONAL UNITS CAP PO SCH (09:57)
[2016-05-07] MEDS: SODIUM CHLORIDE 0.9% INJ 10 ML SYR IV SCH (09:58)
[2016-05-07] MEDS ORDERED: CIPR-250 PO (11:07)
[2016-05-07] MEDS: SODIUM CHLORIDE 0.9% INJ 10 ML SYR IV PRN (13:08)
--- NOTE | 2016-05-07 18:12 | DSES ---
DATE OF ADMISSION: 05/06/2016 DATE OF DISCHARGE: 05/07/2016 ATTENDING PHYSICIAN: Wiley Henderson MD and Elvis Morales MD PRIMARY CARE PROVIDER: JACKSON Pham REFERRING PHYSICIAN: None. CONSULTING PHYSICIAN: None. CONDITION ON DISCHARGE: Stable. FINAL DIAGNOSIS: Altered mental status with lethargy likely secondary to urinary tract infection. PROCEDURES: None. HISTORY OF PRESENT ILLNESS: Patient is a 71-year-old female with a past medical history of progressive multiple sclerosis, wheelchair bound without the ability to stand, cared for 30/09 by two caregivers at home, with prior history of pneumonia in February 2016 at [facility], as well as history of deep venous thrombosis (DVT) in her left lower extremity, breast cancer status post mastectomy, hypertension, coronary artery disease, myocardial infarction ([place]) times three, status post stent placement at [facility], who presented to the emergency room with worsening lethargy and increasing memory loss. The patient was found to have a positive urinalysis and was started on antibiotics. HOSPITAL COURSE: 1. Altered mental status with lethargy secondary to acute encephalopathy likely secondary to urinary tract infection. MRI of the brain without any acute findings to suggest multiple sclerosis flareup. CT chest shows no acute infiltrates or consolidation. Urine culture is noted. Blood cultures were unrevealing. CT chest without any foci of infection was noted. Patient was initially started on ciprofloxacin, given her extensive allergies, patient was initially started on intravenous (IV) and then transitioned to oral. Physical therapy has been evaluating her and recommended to continue with assisted support. 2. History of multiple sclerosis. Patient with no acute focal neurologic deficit. MRI of the brain without any acute findings. Continue with baclofen and gabapentin. 3. Obstructive sleep apnea. Patient is in the midst of getting outpatient workup for this. Will defer to her outpatient primary care provider for further followup. 4. History of coronary artery disease. History of non-ST elevation myocardial infarction (NSTEMI). Continue with aspirin, Plavix, Lipitor, beta blockade with metoprolol. 5. Hypertension. Continue with metoprolol. 6. Hypothyroidism. Thyroid function tests were noted. Continue with levothyroxine. 7. Moderate sized hiatal hernia with achalasia. Continue with Protonix. 8. Gout. Continue with allopurinol. 9. Deep venous thrombosis (DVT) prophylaxis. Continue with sequential compression devices. DISCHARGE MEDICATIONS: Patient is being discharged home with the following medication list: - hydrocodone/acetaminophen one tablet by mouth three times a day as needed for pain - albuterol sulfate 2.5 mg inhaled every 4 hours as needed for shortness of breath - alendronate 35 mg by mouth once a week - allopurinol 100 mg by mouth daily - aspirin 81 mg by mouth daily - atorvastatin 20 mg by mouth nightly - baclofen 10 mg by mouth twice a day - calcium 1200 mg by mouth daily - cetirizine 10 mg by mouth daily - Plavix 75 mg by mouth three times a week - Enablex 7.5 mg by mouth daily - ferrous sulfate 325 mg by mouth daily - furosemide 20 mg by mouth daily - gabapentin 300 mg by mouth three times a day - levothyroxine 112 mcg by mouth daily - metoprolol 50 mg by mouth nightly - modafinil 200 mg by mouth daily - multivitamin one tablet by mouth daily - nitroglycerin 0.4 mg sublingual every 5 minutes as needed for angina - Protonix 40 mg by mouth daily - potassium chloride 20 mEq by mouth daily - sertraline 150 mg by mouth daily - vitamin E 400 units by mouth daily New medications prescribed include: - ciprofloxacin 200 mg by mouth twice a day for #10 tablets DISCHARGE INSTRUCTIONS: Patient has been advised to followup with her primary care provider and neurologist within the next 7 days. She has been advised to remain compliant with treatment plan and medications and to return to the emergency room if she experiences any problems. TIME SPENT ON DISCHARGE: 35 minutes. SOL
== END 2016-05-07 13:30 | disposition home or self-care (01) | DRG 690 ==
LOC: M ED 18:27 → M ED INP 23:51 → M MS5PR 05-04 02:00 → OBSVTOIN 05-06 07:47
PROVIDERS: ADMIT General Practice; ATTEND Internal Medicine
DX: N39.0 Urinary tract infection, site not specified (principal); R41.82 Altered mental status, unspecified; I10 Essential (primary) hypertension; I25.10 Atherosclerotic heart disease of native coronary artery without angina pectoris; G47.33 Obstructive sleep apnea (adult) (pediatric); M10.9 Gout, unspecified; Z66 Do not resuscitate; B96.89 Other specified bacterial agents as the cause of diseases classified elsewhere; M81.0 Age-related osteoporosis without current pathological fracture; K44.9 Diaphragmatic hernia without obstruction or gangrene; K22.0 Achalasia of cardia; E03.9 Hypothyroidism, unspecified; G35 Multiple sclerosis; Z86.718 Personal history of other venous thrombosis and embolism; Z85.3 Personal history of malignant neoplasm of breast; Z90.11 Acquired absence of right breast and nipple; Z79.82 Long term (current) use of aspirin; Z79.899 Other long term (current) drug therapy; Z99.3 Dependence on wheelchair; Z95.828 Presence of other vascular implants and grafts; Z88.0 Allergy status to penicillin; Z88.2 Allergy status to sulfonamides; Z91.02 Food additives allergy status; I25.2 Old myocardial infarction

== ENCOUNTER 2016-05-12 17:02 | Inpatient (IN) | payer MEDICARE, OTHER ==
[~2016-05-12] VITALS: Ht 152.4 cm; Wt 72.2 kg
[~2016-05-12 17:02] MED LIST: ALBU83IN INH; ALLO100T PO; ASPI81TA7 PO; ATOR1TAB21 PO; BACL10TA2 PO; CALC600T10 PO; CETI10TA PO; CIPR-250 PO; ENAB7.5T PO; FERR325T PO; FOSA70TA PO; FURO20TA2 PO; GABA300C3 PO; HYDR-3713 PO; K-TA1TAB PO; LEVO112T25 PO; METO-207 PO; MODA200T15 PO; NITR4TASL SL; PANT40TA2 PO; PLAV75TA38 PO; SERT-138 PO; VITA400C2 PO; VITMTA PO
[2016-05-12] MEDS ORDERED: NS 1,000 ML IV SCH (18:23)
--- NOTE | 2016-05-12 19:10 | REPUSA ---
CT of the head Clinical history: altered mental status. Comparison: 05/03/2016. Protocol: Multiple axial CT images obtained with 5 mm slice thickness were obtained through the head without administration of contrast. Findings: The ventricles and sulci are symmetric but prominent in size bilaterally. There are periven tricular areas of low attenuation throughout the deep white matter. There is no evidence of acute hem orrhage or infarct. There is no midline shift, mass effect, or extra-axial fluid collection. The osse ous structures are unremarkable. The visualized paranasal sinuses and mastoid air cells are clear. Impression: No acute hemorrhage or infarct. Findings are consistent with age-related atrophy and leather scrubber oriana small vessel ischemic disease. No change since the prior examination.
--- NOTE | 2016-05-12 19:40 | REPUSA ---
Clinical history: altered mental status. Comparison: None. Findings: Frontal and lateral views of the chest were obtained. A right-sided chest port is in place. The mediastinum is within normal limits. The heart is enlarged. The lungs are clear. No pleural effus ion or pneumothorax is seen. The osseous structures and soft tissues are unremarkable. Impression: No acute disease. Cardiomegaly.
[2016-05-12 19:56] LABS: BASO % 0.5 % (0.0-1.0); EOS # 0.5 K/mm3 (0.0-0.50); EOS % 4.3 % (0.0-3.0); LARGE UNSTAINED CELL # 0.1 K/mm3 (0.0-0.4); LYMPH # 1.2 K/mm3 (1.5-4.5); MEAN CORPUSCULAR HGB CONC 33.1 g/dl (32.0-36.5); MEAN CORPUSCULAR VOLUME 93.7 fl (80.0-96.0); MONO # 0.6 K/mm3 (0.0-0.8); MONO % 5.3 % (0.0-5.0); NEUTROPHILS # 8.5 K/mm3 (1.8-7.7); PLATELET COUNT, AUTOMATED 210 k/mm3 (150-450); RED CELL DISTRIBUTION WIDTH 14.1 % (11.5-14.5); WHITE BLOOD COUNT 10.8 K/mm3 (4.0-10.0)
[2016-05-12 20:21] LABS: ALBUMIN 3.4 GM/DL (3.2-5.2); ALBUMIN/GLOBULIN RATIO 0.83 (1.00-1.93); ALKALINE PHOSPHATASE 100 U/L (45-117); ALT/SGPT 36 U/L (12-78); ANION GAP 9 MEQ/L (8-16); AST/SGOT 31 U/L (15-37); BILIRUBIN,DIRECT < 0.1 MG/DL (0.0-0.2); BILIRUBIN,TOTAL 0.3 MG/DL (0.2-1.0); BLOOD UREA NITROGEN 18 MG/DL (7-18); CALCIUM LEVEL 9.1 MG/DL (8.8-10.2); CARBON DIOXIDE LEVEL 30 MEQ/L (21-32); CHLORIDE LEVEL 104 MEQ/L (98-107); CREATININE FOR GFR 1.07 MG/DL (0.55-1.02); GLUCOSE, FASTING 96 MG/DL (83-110); POTASSIUM SERUM 3.9 MEQ/L (3.5-5.1); SODIUM LEVEL 143 MEQ/L (136-145); TOTAL PROTEIN 7.5 GM/DL (6.4-8.2)
--- NOTE | 2016-05-12 20:24 | ECGEPIP ---
Stationary ECG Study [facility] - ED Test Date: 2016-05-12 Pat Name: ELEN CASTELLON Department: Room: - Gender: F Card Lacer: misti : 1945 Requested By: CASSANDRA Beard Order Number: [id number] Reading MD: Marci Galarza Measurements Intervals [place] Rate: 66 P: 30 [place]: 165 QRS: -20 QRSD: 89 T: 11 QT: 395 QTc: 414 Interpretive Statements SINUS RHYTHM NSTTW ABNORMALITY ?PRIOR INFERIOR INFARCT SIMILAR 05/03/16 Electronically Signed On 05-12-2016 20:24:38 EST by Marci Galarza
[2016-05-12] MEDS ORDERED: CIPR-250 PO (22:07)
[2016-05-13] VITALS (7 sets, daily range): BP systolic 139–145; BP diastolic 60–86
[2016-05-13] MEDS ORDERED: NORCO, ANEXSIA 5/325MG TABLET (HYDROcodone/ACETAMINOPHEN) PO PRN
--- NOTE | 2016-05-13 01:30 | REPUSA ---
CLINICAL HISTORY: Confusion. TECHNIQUE: Three dimensional [id number] angiography is performed of the [place]. The errol dy was performed without IV contrast agent. FINDINGS: The supraclinoid portions of the internal carotid arteries are of normal shape. The normal bifurcation is seen. The middle cerebral arteries are unremarkable in appearance. The posterior circu lation is visualized and shows no evidence of occlusion or aneurysm formation. The basilar tip is see n and shows no aneurysm formation. There is no evidence of beading to suggest vasculitis. IMPRESSION: MRA of the [place] is within normal limits. Thank you for your kind referral of this patient.
--- NOTE | 2016-05-13 01:30 | REPUSA ---
CLINICAL HISTORY: Confusion. TECHNIQUE: MRI of the brain was performed utilizing multiple sequences in axial, coronal and sagittal planes with IV contrast material. COMMENTS: The sella and parasellar region are unremarkable in appearance. The corpus callosum and cerebellar to nsils are of normal configuration and position. There are no intra or extra- axial collections. There is no mass effect or midline shift. There is no evidence of hematoma formation. There is no hydrocep halus. The visualized arterial structures demonstrate normal-appearing flow voids. The seventh and eighth ne rve bundles are visualized and are unremarkable in appearance. Numerous confluent foci of T2/FLAIR hyperintensity are noted in the bilateral periventricular and sub cortical white matter compatible with severe chronic white matter ischemic changes. Generalized proportionate dilatation of ventricles and sulci is present compatible with age-appropria te parenchymal atrophy. 1.4 cm right frontal cystic encephalomalacia. No abnormal enhancement is seen. IMPRESSION: 1. No acute intracranial pathology. 2. Generalized age-appropriate parenchymal atrophy. 3. Severe chronic white matter microvascular ischemic changes. Thank you for your kind referral of this patient.
[2016-05-13] MEDS: GABAPENTIN 300 MG CAP PO SCH ×4 (02:52→21:22)
[2016-05-13] MEDS: ATORVASTATIN 20 MG TAB PO SCH ×2 (02:52→21:21)
[2016-05-13] MEDS: BACLOFEN 10 MG TAB PO SCH ×3 (02:52→21:21)
[2016-05-13] MEDS: METOPROLOL SUCC (TopROL XL) 50MG **XL** TAB PO SCH ×2 (02:52→21:21)
[2016-05-13 06:08] LABS: BASO % 0.4 % (0.0-1.0); EOS # 0.4 K/mm3 (0.0-0.50); EOS % 4.8 % (0.0-3.0); LARGE UNSTAINED CELL # 0.1 K/mm3 (0.0-0.4); LARGE UNSTAINED CELL % 1.6 % (0.0-4.0); LYMPH # 1.1 K/mm3 (1.5-4.5); LYMPH % 14.8 % (24.0-44.0); MEAN CORPUSCULAR HEMOGLOBIN 30.1 pg (27.0-33.0); MEAN CORPUSCULAR HGB CONC 32.3 g/dl (32.0-36.5); MEAN CORPUSCULAR VOLUME 93.4 fl (80.0-96.0); MONO # 0.4 K/mm3 (0.0-0.8); MONO % 5.4 % (0.0-5.0); NEUTROPHILS # 5.6 K/mm3 (1.8-7.7); PLATELET COUNT, AUTOMATED 193 k/mm3 (150-450); RED CELL DISTRIBUTION WIDTH 14.1 % (11.5-14.5); WHITE BLOOD COUNT 7.7 K/mm3 (4.0-10.0)
--- NOTE | 2016-05-13 06:23 | HPE ---
DATE OF ADMISSION: 05/12/2016 PRIMARY CARE PROVIDER: Mikhail Pham REASON FOR ADMISSION: Altered mental status. HISTORY OF PRESENT ILLNESS: The patient is a 71-year-old female with past medical history significant for multiple sclerosis (MS), a history of myocardial infarction (ME) with cardiac stents, two back surgeries, and depression who lives at home with 24/7 caregiver. The patient is bed-bound. She is moved out of bed with a Jerrell. She presented to the emergency room today along with her caregivers after they noticed that she has been lethargic with some intermittent confusion that started earlier today. They stated that the last time she acted like that she had an urinary tract infection and so they brought her into the emergency room stating that this has been happening more and more frequently. The patient did not have any complaints at this time. She was oriented to self and place, but not to time. In the emergency room, the patient had a CT of the head which was negative for any acute hemorrhage or infarct. Findings are consistent with age-related atrophy and chronic small vessel ischemic disease. She had a chest x-ray which showed no acute disease and cardiomegaly. She had a mild leukocytosis of 10.8, otherwise her labs were within normal limits. Urinalysis was negative for bacteria, only 1 white blood cell (WBC), negative for leukocyte esterase and nitrites. It was clear and yellow in appearance. Dr. Barboza was contacted from the emergency room. He recommended MRI/MRA without contrast as the patient has iodine allergy. The patient normally sees a neurologist in [place] for her MS. She has a DO NOT RESUSCITATE, DO NOT RESUSCITATE form and her sister is her healthcare proxy, she lives in [place]. REVIEW OF SYSTEMS: Unable to obtain due to the patient's slight confusion. PAST MEDICAL HISTORY: Significant for MS, history of ME, back surgeries, history of depression, obstructive sleep apnea and she was to be evaluated outpatient for CPAP, hypothyroidism, history of breast cancer status post right mastectomy, history of hypertension, history of gout. PAST SURGICAL HISTORY: Significant for cardiac stents, right mastectomy and lumbar spine surgery times two. SOCIAL HISTORY: The patient is bed-bound and lives at home with a caregiver 24 hours a day. No alcohol or tobacco use. She has remote history of smoking. ALLERGIES: - IODINE - SULFA - PENICILLIN HOME MEDICATIONS (include): - hydrocodone/acetaminophen 1 tablet by mouth three times a day as needed pain - albuterol sulfate 2.5 mg inhaled every 4 hours as needed shortness of breath - Fosamax 35 mg by mouth once a week - allopurinol 100 mg by mouth daily - aspirin 81 mg by mouth daily - atorvastatin 20 mg at bedtime - baclofen 10 mg by mouth twice a day - calcium 1200 mg by mouth daily - cetirizine 10 mg by mouth daily - ciprofloxacin 250 by mouth every 12 hours - Plavix 75 mg three times a week - ferrous sulfate 325 mg daily - Enablex 7.5 mg by mouth daily - furosemide 20 mg by mouth daily - gabapentin 300 mg by mouth three times a day - Levoxyl 112 mcg daily - metoprolol 50 mg at bedtime - modafinil 200 mg at bedtime - multivitamin 1 tablet by mouth daily - nitroglycerine 0.4 mg sublingually as needed angina - pantoprazole 40 mg by mouth daily - potassium chloride 20 mEq by mouth daily - Sertraline 150 mg by mouth daily - vitamin E 400 units by mouth daily Family history : noncontributory PHYSICAL EXAMINATION VITALS: On admission, temperature 97.6, pulse 64, respiratory rate 18, blood pressure 100/50, pulse oximetry 98% on 2 liters nasal cannula. HEENT: Pupils equal round and reactive to light accommodation. Neck supple. No jugular venous distention (JVD). Lungs: Clear to auscultation (CTA) bilaterally. Abdomen: Soft, nontender, nondistended. Extremities: +2 edema bilaterally. LABORATORY FINDINGS: WBC 7.8, hemoglobin 13.3, hematocrit 40.2, platelet count 210. Sodium was 143, potassium 3.9, chloride 104, BUN 18, creatinine 1.07, TSH 1.64. Urinalysis negative. IMAGING STUDIES: As above. ASSESSMENT/PLAN: 1. Altered mental status. The patient has been having increased lethargy. CT scan was negative. Blood and urine cultures are pending to rule out infection. Per caregiver, the patient normally acts like that when she has an infection, but has been more and more confused and it may be secondary to her MS. Neurology is consulted and they recommended to obtain MRI/MRA. Will monitor the patient on telemetry. Continue neuro checks. 2. History of MS. The patient follows up with neurology in [place]. She has an appointment on 05/27/2016. She is currently DNR/DNI. She is bed-bound and does not ambulate. Caregivers use a Jerrell to get her out of bed. 3. History of coronary artery disease status post ME with cardiac stents. Will continue the patient's home medications including beta rhonda, aspirin 81 mg, atorvastatin 20 mg and Plavix 75 mg three times a week. 4. History of depression. Continue the patient's home medications. 5. History of hypothyroidism. Continue Levoxyl 112 mcg by mouth daily. 6. History of gastroesophageal reflux disease. Continue pantoprazole by mouth daily. 7. Lower extremity edema. Will continue the patient's Lasix and potassium. Will check labs in the morning. 8. History of gout. Continue the patient's allopurinol. The patient will be seen by Dr. Murillo in the morning. SOL
[2016-05-13 06:32] LABS: ALBUMIN 2.8 GM/DL (3.2-5.2); ALBUMIN/GLOBULIN RATIO 0.93 (1.00-1.93); ALKALINE PHOSPHATASE 85 U/L (45-117); ALT/SGPT 26 U/L (12-78); ANION GAP 10 MEQ/L (8-16); AST/SGOT 23 U/L (15-37); BILIRUBIN,TOTAL 0.3 MG/DL (0.2-1.0); BLOOD UREA NITROGEN 16 MG/DL (7-18); CALCIUM LEVEL 8.2 MG/DL (8.8-10.2); CARBON DIOXIDE LEVEL 29 MEQ/L (21-32); CHLORIDE LEVEL 107 MEQ/L (98-107); CREATININE FOR GFR 0.89 MG/DL (0.55-1.02); GLOMERULAR FILTRATION RATE > 60.0 (>39); GLUCOSE, FASTING 87 MG/DL (83-110); MAGNESIUM LEVEL 2.1 MG/DL (1.8-2.4); POTASSIUM SERUM 3.6 MEQ/L (3.5-5.1); SODIUM LEVEL 146 MEQ/L (136-145); TOTAL PROTEIN 5.8 GM/DL (6.4-8.2)
[2016-05-13] MEDS: SODIUM CHLORIDE 0.9% INJ 10 ML SYR IV SCH (09:21)
[2016-05-13] MEDS: FUROSEMIDE 20 MG TAB PO SCH (09:39)
[2016-05-13] MEDS: MULTIVITAMINS/MINERALS THERAP 1 TAB PO SCH (09:39)
[2016-05-13] MEDS: SERTRALINE 100 MG TAB PO SCH (09:40)
[2016-05-13] MEDS: PANTOPRAZOLE 40MG TAB (PROTONIX) PO SCH (09:40)
[2016-05-13] MEDS: ALLOPURINOL 100 MG TAB PO SCH (09:40)
[2016-05-13] MEDS: ASPIRIN 81 MG ENTERIC TAB PO SCH (09:40)
[2016-05-13] MEDS: CETIRIZINE (ZyrTEC) 10 MG TAB PO SCH (09:40)
[2016-05-13] MEDS: MODAFINIL 200MG TABLET PO SCH (09:40)
[2016-05-13] MEDS: FERROUS SULFATE 325MG TAB PO SCH (09:40)
[2016-05-13] MEDS: CLOPIDOGREL 75 MG TAB PO SCH (09:41)
[2016-05-13] MEDS: POTASSIUM CHLORIDE 10 MEQ SR TABLET PO SCH (09:41)
[2016-05-13] MEDS: LEVOTHYROXINE 0.112 MG TAB (112 MCG) PO SCH (09:44)
[2016-05-13] MEDS: VITAMIN E 400 INTERNATIONAL UNITS CAP PO SCH (12:25)
--- NOTE | 2016-05-13 19:56 | IPN ---
DATE: 05/13/2016 SUBJECTIVE: The patient is seen and examined in the room today. The patient is alert and oriented times three. The patient is able to answer questions and follow commands. The patient stated her mentation is improving. Initially, the patient was brought in by the 30/09 caregiver due to concern for acute altered mental status change. I discussed the case with the patient's sister. She feels the patient's mentation is not back to her baseline. They are concerned that there is a recurrent infection. Every time the patient had similar episode in the past, usually occurs with the patient has an acute infection. The patient has a history of recent hospitalization from 05/06 to 05/07 for urinary tract infection (UTI). The patient was recently discharged with ciprofloxacin for a five-day course. OBJECTIVE: VITAL SIGNS: Temperature is 94.9, pulse is 69, respirations 14, blood pressure 134/68, pulse oximetry 96% with one liter nasal cannula. GENERAL: No acute distress. Alert and oriented. Able to answer questions and follow commands. HEENT: Normocephalic, atraumatic. Extraocular motor grossly intact. CARDIOVASCULAR: Positive S1, S2. Regular rate. LUNGS: Clear to auscultation bilaterally. ABDOMEN: Soft, obese, nontender, nondistended. Bowel sounds present. No rebound, no guarding. EXTREMITIES: Two plus pitting edema bilaterally. No sign of cyanosis. LABORATORY DATA: WBC is 7.7, hemoglobin 10.7, hematocrit 33.2, platelet count 193. Sodium is 146, potassium 3.6, chloride 107, carbon dioxide 29, BUN 16, creatinine 0.89, GFR greater than 60, fasting glucose is 87, calcium 8.2, magnesium 2.1. Total bilirubin is 0.3, AST 23, ALT 26, alkaline phosphatase 85. Total protein 5.9, albumin 2.8. MICROBIOLOGY: Blood cultures pending. Urine culture pending. ASSESSMENT AND PLAN: 1. Acute mental status change. 2. History of multiple sclerosis. 3. History of coronary artery disease status post myocardial infarction ([place]) with cardiac stents. 4. History of depression. 5. Hypothyroidism. 6. Gastroesophageal reflux disease. 7. Lower extremity edema. 8. History of gout. 9. The patient has recent urinary tract infection, status post five-day course of ciprofloxacin. We will follow with culture to rule out possible infection etiology. We cannot fully rule out medication-induced acute mental status change. The patient has a history of MS. , Dr. Barboza, has been contacted regarding the case. Will wait for the recommendations. The patient will continue on atorvastatin, aspirin and Plavix for patient's history of coronary artery disease. The patient is also taking beta blockers. Initially the patient was on a clear liquid diet. There is some sign that the patient is unable to tolerate any oral intake. The patient will start oral and we will consult speech therapy for swallow evaluation. The patient will continue Synthroid for her hypothyroidism. The patient is on allopurinol for her gout. The patient has Lasix for her lower extremity edema. The patient is on Zoloft for her anxiety/depression. The patient has neurologic checks every four hours. The patient is on thromboembolism deterrent stockings (TEDs) and sequential compression devices for deep venous thrombosis (DVT) prophylaxis.
[2016-05-14] VITALS (7 sets, daily range): BP systolic 133–152; BP diastolic 59–96
[2016-05-14] MEDS: SODIUM CHLORIDE 0.9% INJ 10 ML SYR IV PRN ×2 (05:56→21:47)
[2016-05-14 06:14] LABS: BASO % 0.4 % (0.0-1.0); EOS # 0.3 K/mm3 (0.0-0.50); EOS % 3.2 % (0.0-3.0); LARGE UNSTAINED CELL # 0.1 K/mm3 (0.0-0.4); LARGE UNSTAINED CELL % 1.5 % (0.0-4.0); LYMPH # 1.2 K/mm3 (1.5-4.5); LYMPH % 13.1 % (24.0-44.0); MEAN CORPUSCULAR HEMOGLOBIN 29.5 pg (27.0-33.0); MEAN CORPUSCULAR HGB CONC 31.4 g/dl (32.0-36.5); MEAN CORPUSCULAR VOLUME 94.1 fl (80.0-96.0); MONO # 0.5 K/mm3 (0.0-0.8); MONO % 5.4 % (0.0-5.0); NEUTROPHILS % 76.4 % (36.0-66.0); PLATELET COUNT, AUTOMATED 197 k/mm3 (150-450); WHITE BLOOD COUNT 9.2 K/mm3 (4.0-10.0)
[2016-05-14 06:44] LABS: ALBUMIN/GLOBULIN RATIO 0.94 (1.00-1.93); ALKALINE PHOSPHATASE 88 U/L (45-117); ALT/SGPT 24 U/L (12-78); ANION GAP 9 MEQ/L (8-16); AST/SGOT 25 U/L (15-37); BILIRUBIN,TOTAL 0.3 MG/DL (0.2-1.0); BLOOD UREA NITROGEN 14 MG/DL (7-18); CALCIUM LEVEL 8.5 MG/DL (8.8-10.2); CARBON DIOXIDE LEVEL 30 MEQ/L (21-32); CHLORIDE LEVEL 107 MEQ/L (98-107); CREATININE FOR GFR 0.89 MG/DL (0.55-1.02); GLOMERULAR FILTRATION RATE > 60.0 (>39); GLUCOSE, FASTING 88 MG/DL (83-110); POTASSIUM SERUM 3.6 MEQ/L (3.5-5.1); SODIUM LEVEL 146 MEQ/L (136-145); TOTAL PROTEIN 6.2 GM/DL (6.4-8.2)
[2016-05-14] MEDS: VITAMIN E 400 INTERNATIONAL UNITS CAP PO SCH (08:26)
[2016-05-14] MEDS: SODIUM CHLORIDE 0.9% INJ 10 ML SYR IV SCH (08:26)
[2016-05-14] MEDS: LEVOTHYROXINE 0.112 MG TAB (112 MCG) PO SCH (08:26)
[2016-05-14] MEDS: SERTRALINE 100 MG TAB PO SCH (08:27)
[2016-05-14] MEDS: POTASSIUM CHLORIDE 10 MEQ SR TABLET PO SCH (08:27)
[2016-05-14] MEDS: GABAPENTIN 300 MG CAP PO SCH ×3 (08:27→21:21)
[2016-05-14] MEDS: MULTIVITAMINS/MINERALS THERAP 1 TAB PO SCH (08:27)
[2016-05-14] MEDS: ASPIRIN 81 MG ENTERIC TAB PO SCH (08:27)
[2016-05-14] MEDS: MODAFINIL 200MG TABLET PO SCH (08:27)
[2016-05-14] MEDS: ALLOPURINOL 100 MG TAB PO SCH (08:27)
[2016-05-14] MEDS: FUROSEMIDE 20 MG TAB PO SCH (08:28)
[2016-05-14] MEDS: PANTOPRAZOLE 40MG TAB (PROTONIX) PO SCH (08:28)
[2016-05-14] MEDS: BACLOFEN 10 MG TAB PO SCH ×2 (08:28→21:21)
[2016-05-14] MEDS: FERROUS SULFATE 325MG TAB PO SCH (08:28)
[2016-05-14] MEDS: CETIRIZINE (ZyrTEC) 10 MG TAB PO SCH (08:28)
[2016-05-14] MEDS ORDERED: D5W 1,000 ML IV ONE (09:00)
--- NOTE | 2016-05-14 10:56 | CR ---
DATE OF CONSULTATION: 05/13/2016 REFERRING PHYSICIAN: Dr. Toledo. HISTORY: The patient is a 71-year-old female with known history of chronic multiple sclerosis (MS) who has been bed bound. She presented to the emergency room (ER) because of generalized lethargy. According to the history available, she has had similar episodes in the past and was generally diagnosed with urinary tract infection. The last she was treated with antibiotics after which she got better. In the ER, she had a CT scan of the brain performed which did not show any acute changes. She was admitted for further care. Since then, her lethargy and confusion has improved. Her white cell count was mildly elevated at 10,800. Today she seems to be doing fairly well. She is answering appropriately. She does not seem to be confused. She however does have a history of chronic progressive MS and she has multiple neurological deficits. There is no complaint of any headaches at the present time. She denies dizzy spells, vertigo and diplopia. She is weak both in her upper and lower extremities and needs assistance for feeding and also with activities of daily living. Her MRI of the brain does not show any acute changes. The MRA of the brain does not show any critical stenosis. She has been on multiple medications at home which include: Hydrocodone, albuterol, Fosamax, allopurinol, aspirin 81 mg daily, atorvastatin, baclofen 10 mg twice a day, calcium, cetirizine, ciprofloxacin, Plavix 75 mg three times a week, ferrous sulfate, antibiotics, Lasix, Neurontin 300 mg three times a day, Levoxyl, metoprolol, multivitamin, modafinil 200 mg nightly, pantoprazole, potassium, Zoloft 150 mg daily, and also vitamin E. PAST MEDICAL HISTORY: 1. Chronic progressive MS. 2. Depression. 3. Sleep apnea syndrome. 4. Coronary artery disease. 5. History of low back surgeries. 6. Hypothyroidism. 7. Status post breast cancer. 8. Gout. 9. Hypertension. FAMILY HISTORY: The patient's mother and father are both . Both were known to have a history of hypertension. PERSONAL AND SOCIAL HISTORY: Patient is currently bed-bound. She lives at home with a caregiver. There is no past medical history of any alcohol or drug abuse. She used to smoke in the past but she quit many years ago. All other systems were reviewed and found to be noncontributory. PHYSICAL EXAMINATION: Patient does not appear in any discomfort. Her speech is slow. Her posture is within normal limits. Her neck is supple. There is no carotid bruit audible. Her ear, nose and throat examination is normal. Lungs are clear to auscultation. Her heart is regular in rhythm. Her abdomen is soft and distended. She is 5 feet tall. She weighs about 73 kg. She is oriented to place. She does not remember the day, date or year. Extraocular movements are intact. She has one to two beats of horizontal nystagmus bilaterally. Her pupils are about 3 mm in size and reactive to light. Consensual light reflex is present bilaterally. Visual quick could not be tested well. Her face is symmetrical. Tongue is midline. She has weakness both in her upper and lower extremities where her strength is significantly decreased. She has spastic tone both in her arms and legs. There are no resting tremors noted. Her sensory examination could not be performed well. Deep tendon reflexes are 2+ and symmetrical with upgoing toes bilaterally. Her gait is not tested. DIAGNOSTIC STUDIES: The patient's CT scan of the brain performed in the ER was reported to be normal. She did have an MRI of the brain on 05/13/2016 which did show moderate to severe small-vessel ischemic disease. She was also noted to have age appropriate parenchymal atrophy. ASSESSMENT: 1. Altered mental status. 2. Questionable Infection - resolved. 3. Chronic progressive multiple sclerosis (MS). 4. Inability to walk secondary to above. PLAN: 1. Continue with current care. 2. Closely monitor her urinary tract infection (UTI) status. 3. Physical therapy/occupational therapy (PT/OT) evaluation. 4. Followup with neurology in [place]. Thank you very much for this consultation.
--- NOTE | 2016-05-14 14:00 | IPN ---
DATE: 05/14/2016 The patient is awake, alert and oriented to person, place and time. Answering questions appropriately. Slow to respond. Her speech is fluent. Unchanged neuro checks per nursing at the bedside. The patient did have a speech swallow evaluation yesterday and is safe to eat a regular diet with some thin liquids. The patient has no new complaints. Today, she denies any chest pain, pressure or tightness, shortness of breath, palpitations, lightheadedness, or dizziness. She is chronically bed bound with a Jerrell lift at home. Does not ambulate and is currently at baseline. She is currently on 1 liter nasal cannula at all times. Denies any shortness of breath. PHYSICAL EXAMINATION: VITAL SIGNS: Temperature 96.4, pulse 62 and sinus. Respiratory rate 20, blood pressure 133/61, 96% on 1 liter nasal cannula. GENERAL: The patient is awake, alert, oriented to person and place. HEENT: Extraocular muscles are intact. HEART: S1, S2. Sinus rhythm. No murmurs, rubs or gallops. LUNGS: Clear to auscultation. No wheezing, rales or rhonchi. ABDOMEN: Soft, obese, nontender, nondistended. Positive bowel sounds. No rebound or guarding. No hepatosplenomegaly. EXTREMITIES: 2+ pitting edema bilaterally. No cyanosis. SKIN: [place] in color. Warm to touch. White count 9.2, hemoglobin 11, hematocrit 35, platelet count 187. Sodium 146, potassium 3.6, chloride 107, bicarbonate 30, BUN 14, creatinine 0.89 , glucose 88. Urine culture with no growth. Blood culture with no growth after 24 hours. MRI of the brain shows no acute intracranial pathology, generalized parenchymal atrophy, severe chronic white matter microvascular ischemic changes. MRA of the brain shows MRA of the [place] within normal limits. ASSESSMENT AND PLAN: This is a 71-year-old female who was admitted on 05/12/2016 with altered mental status. The patient had a previous admission for urinary tract infection (UTI). Sister was afraid that this was returning. UA was unremarkable. Urine culture showed no growth. MRI and MRA showed no abnormality. The patient's mentation improved. CURRENT ISSUES: 1. Dehydration. Hold off on patient's Lasix today. Slight fluid hydration. Recheck metabolic panel at a later time. 2. Altered mental status with increased lethargy. MRI of the brain shows no acute intracranial pathology. Neuro checks have been normal. She may be transferred to medical/surgical floor. 3. History of multiple sclerosis. Follows with neurologist in [place]. Appointment on 05/27/2016. She is currently DO NOT RESUSCITATE, DO NOT INTUBATE. Bed bound with Jerrell lift and 24/7 caregivers at home. 4. History of coronary artery disease and myocardial infarction with stents. Currently on beta blockade, aspirin, atorvastatin and Plavix. 5. History of depression. On home medications. 6. Hypothyroidism. On Levoxyl. 7. Reflux. On proton pump inhibitor. 8. Chronic lower extremity edema. The patient's Lasix was held currently due to hypernatremia and dehydration. 9. History of gout. On allopurinol. DISPOSITION: The patient is medically stable for transfer to medical/surgical floor. May discharge home if okay with neurology. [facility] HOSPITALMarty
[2016-05-14] MEDS: METOPROLOL SUCC (TopROL XL) 50MG **XL** TAB PO SCH (21:21)
[2016-05-14] MEDS: ATORVASTATIN 20 MG TAB PO SCH (21:21)
[2016-05-14 22:07] LABS: CALCIUM LEVEL 8.4 MG/DL (8.8-10.2); CREATININE FOR GFR 1.1 MG/DL (0.55-1.02); GLOMERULAR FILTRATION RATE 52.3 (>39); POTASSIUM SERUM 3.5 MEQ/L (3.5-5.1)
[2016-05-15 02:00] VITALS: BP 152/74
[2016-05-15 05:51] LABS: BASO % 0.7 % (0.0-1.0); EOS # 0.3 K/mm3 (0.0-0.50); EOS % 4.4 % (0.0-3.0); LARGE UNSTAINED CELL # 0.1 K/mm3 (0.0-0.4); LARGE UNSTAINED CELL % 1.4 % (0.0-4.0); LYMPH # 1.6 K/mm3 (1.5-4.5); MEAN CORPUSCULAR HEMOGLOBIN 30.6 pg (27.0-33.0); MEAN CORPUSCULAR HGB CONC 32.4 g/dl (32.0-36.5); MEAN CORPUSCULAR VOLUME 94.5 fl (80.0-96.0); MONO # 0.5 K/mm3 (0.0-0.8); MONO % 7.2 % (0.0-5.0); NEUTROPHILS # 4.9 K/mm3 (1.8-7.7); NEUTROPHILS % 66.3 % (36.0-66.0); PLATELET COUNT, AUTOMATED 190 k/mm3 (150-450); RED CELL DISTRIBUTION WIDTH 14.1 % (11.5-14.5); WHITE BLOOD COUNT 7.4 K/mm3 (4.0-10.0)
[2016-05-15 06:00] VITALS: BP 128/60
[2016-05-15 06:10] LABS: ALBUMIN 2.9 GM/DL (3.2-5.2); ALBUMIN/GLOBULIN RATIO 0.81 (1.00-1.93); ALKALINE PHOSPHATASE 84 U/L (45-117); ALT/SGPT 20 U/L (12-78); ANION GAP 6 MEQ/L (8-16); AST/SGOT 22 U/L (15-37); BILIRUBIN,TOTAL 0.3 MG/DL (0.2-1.0); BLOOD UREA NITROGEN 13 MG/DL (7-18); CALCIUM LEVEL 8.3 MG/DL (8.8-10.2); CARBON DIOXIDE LEVEL 33 MEQ/L (21-32); CHLORIDE LEVEL 104 MEQ/L (98-107); GLOMERULAR FILTRATION RATE 58.4 (>39); GLUCOSE, FASTING 89 MG/DL (83-110); MAGNESIUM LEVEL 1.9 MG/DL (1.8-2.4); POTASSIUM SERUM 3.3 MEQ/L (3.5-5.1); SODIUM LEVEL 143 MEQ/L (136-145); TOTAL PROTEIN 6.5 GM/DL (6.4-8.2)
[2016-05-15] MEDS ORDERED: POTASSIUM CHLORIDE 10 MEQ SR TABLET PO ONE (08:15)
[2016-05-15 10:00] VITALS: BP 164/67
[2016-05-15] MEDS: SERTRALINE 100 MG TAB PO SCH (10:02)
[2016-05-15] MEDS: SODIUM CHLORIDE 0.9% INJ 10 ML SYR IV SCH (10:02)
[2016-05-15] MEDS: VITAMIN E 400 INTERNATIONAL UNITS CAP PO SCH (10:03)
[2016-05-15] MEDS: PANTOPRAZOLE 40MG TAB (PROTONIX) PO SCH (10:03)
[2016-05-15] MEDS: CLOPIDOGREL 75 MG TAB PO SCH (10:03)
[2016-05-15] MEDS: MULTIVITAMINS/MINERALS THERAP 1 TAB PO SCH (10:03)
[2016-05-15] MEDS: LEVOTHYROXINE 0.112 MG TAB (112 MCG) PO SCH (10:03)
[2016-05-15] MEDS: ALLOPURINOL 100 MG TAB PO SCH (10:03)
[2016-05-15] MEDS: CETIRIZINE (ZyrTEC) 10 MG TAB PO SCH (10:04)
[2016-05-15] MEDS: GABAPENTIN 300 MG CAP PO SCH (10:04)
[2016-05-15] MEDS: ASPIRIN 81 MG ENTERIC TAB PO SCH (10:04)
[2016-05-15] MEDS: FERROUS SULFATE 325MG TAB PO SCH (10:04)
[2016-05-15] MEDS: BACLOFEN 10 MG TAB PO SCH (10:04)
[2016-05-15] MEDS: MODAFINIL 200MG TABLET PO SCH (10:10)
--- NOTE | 2016-05-15 16:40 | ECGEPIP ---
Stationary ECG Study [facility] Test Date: 2016-05-15 Pat Name: ELEN CASTELLON Department: Room: [place] [address] Gender: F Testing Shaking Shipping: DEJAH : 1945 Requested By: YESI CASTILLO Order Number: [id number] Reading MD: Liana Brush Measurements Intervals [place] Rate: 65 P: 34 SD: 158 QRS: -22 QRSD: 94 T: 13 QT: 406 QTc: 425 Interpretive Statements SINUS RHYTHM INFERIOR MYOCARDIAL INFARCTION, PROBABLY OLD NEW ST T ABN C/W 05/12/16 Electronically Signed On 05-15-2016 16:40:23 EST by Liana Brush
--- NOTE | 2016-05-16 10:00 | DSES ---
DATE OF ADMISSION: 05/12/2016 DATE OF DISCHARGE: 05/15/2016 CONSULTANTS: Dr. Radha Tran, neurologist. PRIMARY DISCHARGE DIAGNOSES: 1. Altered mental status. 2. Chronic progressive multiple sclerosis, wheelchair bound and bed bound at baseline. 4. Dehydration due to decreased oral intake from increased lethargy and altered mental status. 5. History of coronary artery disease, myocardial infarction ([place] with stents). 6. History of depression. 7. Hypothyroidism, reflux. 8. Chronic lower extremity edema. 9. History of gout. DISCHARGE MEDICATIONS: - hydrocodone acetaminophen, 1 tablet three times a day as needed for pain - albuterol every 4 hours as needed - Fosamax weekly - allopurinol 100 daily - aspirin 81 mg daily - atorvastatin 20 mg nightly - Baclofen 10 twice a day - calcium 1200 mg daily - cetirizine 10 mg daily - Plavix 75 mg three times a week - Enablex 7.5 mg daily - ferrous sulfate 325 mg daily - Lasix 20 daily - gabapentin 300 mg three times a day - Levoxyl 112 mcg daily - metoprolol 50 nightly - modafinil 200 daily - multivitamin one tablet daily - nitroglycerin 0.4 as needed - Protonix 20 daily - potassium chloride 20 daily - Sertraline 150 daily - vitamin E 400 units daily HOSPITAL COURSE: 71-year-old female with chronic progressive multiple sclerosis, chronically bed bound, wheelchair bound and movement by a 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 In the emergency room, CT of the brain showed no acute changes. The patient was lethargic. White count was mildly elevated at 10.8. She was answering appropriately. Multiple neurochecks yielded no significant changes. She was chronically weak in both upper and lower extremities and requires assistance with activities of daily living (ADLs). MRI of the brain shows no other acute changes. MRA showed no critical stenosis. The patient's medications have been unchanged. The patient was initially placed on ciprofloxacin. Urinalysis and urine culture were negative. Chest x-ray showed no infection or consolidation, no infiltrate. Antibiotics were discontinued. Dr. Tran was consulted and recommended monitoring for a UTI, continue with current care. Physical therapy, occupational therapy (PT/OT) and neurology followup as an outpatient in [place]. 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 Swallow evaluation, recommend mechanical soft diet. No fevers or worsening white count was noted during this admission. She had episodes of dehydration with sodium level 146 due to decrease in oral intake. She was hydrated with intravenous (IV) fluids with result in improvement to 143 sodium level from 146 and creatinine improved from 1.1 to 1.0. She remained afebrile and was stabilized for discharge. No other acute issues occurred during the hospital stay. LABS ON DISCHARGE: White count 7.4, hemoglobin 11, hematocrit 34, platelet count 190. Sodium 143, potassium 3.2, chloride 104, bicarbonate 32, BUN 13, creatinine 1, glucose 89. MICROBIOLOGY: Urine culture no growth. Blood culture no growth for 48 hours. Chest x-ray, no acute infiltrate. MRI of the brain no acute intracranial pathology. MRA of the brain, normal. Time spent on discharge 30 minutes.
== END 2016-05-15 14:33 | disposition home health service (06) | DRG 948 ==
LOC: M ED 19:30 → M ED INP 22:53 → M PCU 05-13 00:57 → M MSPAV 05-14 11:44
PROVIDERS: ADMIT Internal Medicine; ATTEND General Practice
DX: R41.82 Altered mental status, unspecified (principal); G35 Multiple sclerosis; I25.2 Old myocardial infarction; F32.9 Major depressive disorder, single episode, unspecified; G47.33 Obstructive sleep apnea (adult) (pediatric); E03.9 Hypothyroidism, unspecified; R60.0 Localized edema; E86.0 Dehydration; Z66 Do not resuscitate; Z85.3 Personal history of malignant neoplasm of breast; Z90.11 Acquired absence of right breast and nipple; I10 Essential (primary) hypertension; M10.9 Gout, unspecified; Z88.0 Allergy status to penicillin; Z88.2 Allergy status to sulfonamides; Z88.8 Allergy status to other drugs, medicaments and biological substances; Z79.891 Long term (current) use of opiate analgesic; Z79.82 Long term (current) use of aspirin; Z79.02 Long term (current) use of antithrombotics/antiplatelets; Z79.899 Other long term (current) drug therapy; Z87.440 Personal history of urinary (tract) infections; Z95.5 Presence of coronary angioplasty implant and graft; Z74.01 Bed confinement status; Z99.3 Dependence on wheelchair

== ENCOUNTER → 2016-07-25 | Outpatient (REF) | payer MEDICARE, OTHER ==
[~2016-07-25] MED LIST changes: +ASPI1TAB15 PO; -ASPI81TA7 PO; -CALC600T10 PO; +CALC600T31 PO; +FERR1TAB8 PO; -FERR325T PO; +GABA-282 PO; -GABA300C3 PO; -METO-207 PO; +METO1TAB7 PO; +PLAV1TAB2 PO; -PLAV75TA38 PO; -VITA400C2 PO; +VITA400C7 PO
== END ==
LOC: M LAB REF 14:00
DX: D23.5 Other benign neoplasm of skin of trunk (principal); L85.9 Epidermal thickening, unspecified